=== PATIENT | male | born 1935 | race Caucasian/White ===

== ENCOUNTER 2021-09-15 07:49 | Outpatient (CLI) | payer MEDICARE, SELFPAY ==
--- NOTE | ~2021-09-15 | NM_ITS ---
EXAMINATION: NM bone scan whole body DATE: 09/15/2021 11:11 INDICATION: Prostate cancer TECHNIQUE: 25.8 mCi Tc-99m HDP was administered intravenously. Delayed whole-body scintigrams were o btained. COMPARISON: There are no relevant imaging studies at our institution. FINDINGS: Likely degenerative joint centered uptake at the medial compartment of the left knee, at the right wr ist, bilateral acromioclavicular joints, left sternoclavicular joint and at a few of the interphalang eal joints of the hands. Band of increased uptake extending across the upper lumbar spine. Also incre ased uptake at the left side of the mandible. A few more atypical small foci of mild increased uptake including at the left side of the inferior sternum, at a few bilateral ribs and at the vertex of the skull. IMPRESSION: 1. A few atypical small foci of mild increased uptake at a few of the ribs, at the sternum and vertex of the skull which raises some suspicion for metastatic disease. Could consider further evaluation w ith chest CT for correlation. 2. Increased uptake at the left mandible with differential including dental disease or metastatic dis ease. 3. Band of increased uptake extending across the upper lumbar spine which configuration favors either degenerative disc disease or compression fracture over metastatic disease. Reviewed, dictated and finalized at location B. IMPRESSION: 1. A few atypical small foci of mild increased uptake at a few of the ribs, at the sternum and vertex of the skull which raises some suspicion for metastatic disease. Could consider further evaluation with chest CT for correlation. 2. Increased uptake at the left mandible with differential including dental dis ease or metastatic disease. 3. Band of increased uptake extending across the upper lumbar spine which confi guration favors either degenerative disc disease or compression fracture over m etastatic disease.
== END 2021-09-15 07:50 | disposition home or self-care (01) ==
PROVIDERS: PCP Internal Medicine Geriatric Medicine; Visit Provider Internal Medicine Hematology & Oncology
DX: C61 Malignant neoplasm of prostate (principal)
CPT/HCPCS: 78306; A9561

== ENCOUNTER 2022-06-01 14:21 | Outpatient (CLI) | payer MEDICARE, SELFPAY ==
[2022-06-01 14:43] LABS: Basophils Percent Auto 0.2 % (0.2-1.2); Eosinophils Absolute Auto 0.5 K/mm3 (0-0.3); Eosinophils Percent Auto 5.5 % (0-4.4); Hematocrit 42.2 % (42.0-52.0); Hemoglobin 13.6 g/dL (14.0-18.0); Immature Granulocyte Absolute 0.03 K/mm3 (0.00-0.031); Immature Granulocyte Percent A 0.3 % (0-0.5); Lymphocytes Absolute Auto 1.34 K/mm3 (0.9-3.2); Lymphocytes Percent Auto 15.6 % (18.3-44.2); Mean Corpuscular HGB Conc 32.2 g/dl (32-36); Mean Corpuscular Hemoglobin 31.8 pg (26-34); Mean Corpuscular Volume 98.6 fl (80-100); Mean Platelet Volume 9.1 fl (7.4-10.4); Monocytes Absolute Auto 0.9 K/mm3 (0.1-0.6); Monocytes Percent Auto 10.5 % (2.6-8.5); Neutrophils Absolute Auto 5.8 K/mm3 (1.3-6.7); Neutrophils Percent Auto 67.9 % (45.5-73.1); Platelet Count Result 207 k/mm3 (150-375); Red Blood Count 4.28 M/mm3 (4.6-6.20); Red Cell Distribution Width 13.1 % (11.5-14.5); White Blood Count 8.6 K/mm3 (4.5-10.0)
[2022-06-01 16:38] LABS: Iron 53 ug/dL (49-181)
[2022-06-01 16:39] LABS: Anion Gap 8 mmol/L (8-16); Blood Urea Nitrogen 18 mg/dL (9-20); Calcium 9.7 mg/dL (8.4-10.2); Carbon Dioxide 29 mmol/L (22-30); Chloride 105 mmol/L (98-107); Estimated Glomerular Filt Rate 48; Glucose 96 mg/dL (65-110); Potassium 4.5 mmol/L (3.4-5.0); Sodium 142 mmol/L (137-145)
[2022-06-01 16:48] LABS: Percent Iron Saturation 14 % (20-50)
[2022-06-01 17:10] LABS: Prostate Specific Antigen < 0.1 ng/mL (< OR = 4.0)
[2022-06-01 17:45] LABS: Folic Acid 12.8 ng/mL (2.76->20)
== END 2022-06-01 14:22 | disposition home or self-care (01) ==
PROVIDERS: PCP Internal Medicine Geriatric Medicine; Visit Provider Internal Medicine Hematology & Oncology
DX: D64.9 Anemia, unspecified (principal); C61 Malignant neoplasm of prostate
CPT/HCPCS: 36415; 80048; 82607; 82728; 82746; 83540; 83550; 84153; 85025

== ENCOUNTER 2023-06-01 08:09 | Outpatient (CLI) | payer MEDICARE, SELFPAY ==
[2023-06-01 08:52] LABS: Basophils Percent Auto 0.3 % (0.2-1.2); Eosinophils Absolute Auto 0.5 K/mm3 (0-0.3); Eosinophils Percent Auto 5.9 % (0-4.4); Hematocrit 41.7 % (42.0-52.0); Hemoglobin 13.5 g/dL (14.0-18.0); Immature Granulocyte Absolute 0.05 K/mm3 (0.00-0.031); Immature Granulocyte Percent A 0.6 % (0-0.5); Lymphocytes Absolute Auto 1.77 K/mm3 (0.9-3.2); Lymphocytes Percent Auto 19.5 % (18.3-44.2); Mean Corpuscular HGB Conc 32.4 g/dl (32-36); Mean Corpuscular Hemoglobin 31.2 pg (26-34); Mean Corpuscular Volume 96.3 fl (80-100); Mean Platelet Volume 8.3 fl (7.4-10.4); Monocytes Absolute Auto 0.7 K/mm3 (0.1-0.6); Neutrophils Percent Auto 65.7 % (45.5-73.1); Platelet Count Result 227 k/mm3 (150-375); Red Blood Count 4.33 M/mm3 (4.6-6.20); Red Cell Distribution Width 12.8 % (11.5-14.5); White Blood Count 9.1 K/mm3 (4.5-10.0)
[2023-06-01 15:23] LABS: Iron 64 ug/dL (49-181)
[2023-06-01 15:26] LABS: Anion Gap 6 mmol/L (8-16); Blood Urea Nitrogen 18 mg/dL (9-20); Calcium 9.6 mg/dL (8.4-10.2); Carbon Dioxide 27 mmol/L (22-30); Chloride 105 mmol/L (98-107); Estimated Glomerular Filt Rate > 60; Glucose 106 mg/dL (65-110); Potassium 4.4 mmol/L (3.4-5.0); Sodium 138 mmol/L (137-145)
[2023-06-01 15:41] LABS: Percent Iron Saturation 16 % (20-50)
[2023-06-01 16:06] LABS: Prostate Specific Antigen < 0.1 ng/mL (< OR = 4.0)
[2023-06-01 16:41] LABS: Folic Acid 15.4 ng/mL (2.76->20)
== END 2023-06-01 08:10 | disposition home or self-care (01) ==
PROVIDERS: PCP Internal Medicine Geriatric Medicine; Visit Provider Internal Medicine Hematology & Oncology
DX: D64.9 Anemia, unspecified (principal); C61 Malignant neoplasm of prostate
CPT/HCPCS: 36415; 80048; 82607; 82728; 82746; 83540; 83550; 84153; 85025

== ENCOUNTER 2023-12-04 08:00 | Outpatient (CLI) | payer MEDICARE, SELFPAY ==
[2023-12-04 08:27] LABS: Basophils Percent Auto 0.2 % (0.2-1.2); Eosinophils Absolute Auto 0.4 K/mm3 (0-0.3); Hematocrit 41.2 % (42.0-52.0); Immature Granulocyte Absolute 0.07 K/mm3 (0.00-0.031); Immature Granulocyte Percent A 0.7 % (0-0.5); Lymphocytes Absolute Auto 1.38 K/mm3 (0.9-3.2); Lymphocytes Percent Auto 13.5 % (18.3-44.2); Mean Corpuscular HGB Conc 31.6 g/dl (32-36); Mean Corpuscular Hemoglobin 30.9 pg (26-34); Mean Corpuscular Volume 97.9 fl (80-100); Mean Platelet Volume 8.5 fl (7.4-10.4); Monocytes Absolute Auto 0.7 K/mm3 (0.1-0.6); Monocytes Percent Auto 6.9 % (2.6-8.5); Neutrophils Absolute Auto 7.7 K/mm3 (1.3-6.7); Neutrophils Percent Auto 74.7 % (45.5-73.1); Platelet Count Result 253 k/mm3 (150-375); Red Blood Count 4.21 M/mm3 (4.6-6.20); Red Cell Distribution Width 13.2 % (11.5-14.5); White Blood Count 10.3 K/mm3 (4.5-10.0)
[2023-12-04 09:29] LABS: Iron 73 ug/dL (49-181)
[2023-12-04 09:31] LABS: Anion Gap 9 mmol/L (4-12); Blood Urea Nitrogen 19 mg/dL (9-20); Calcium 9.2 mg/dL (8.4-10.2); Carbon Dioxide 29 mmol/L (22-30); Chloride 99 mmol/L (98-107); Estimated Glomerular Filt Rate > 60; Glucose 97 mg/dL (65-110); Potassium 4.1 mmol/L (3.4-5.0); Sodium 137 mmol/L (137-145)
[2023-12-04 09:39] LABS: Percent Iron Saturation 18 % (20-50)
[2023-12-04 10:01] LABS: Prostate Specific Antigen < 0.1 ng/mL (< OR = 4.0)
[2023-12-04 10:36] LABS: Folic Acid 11.3 ng/mL (2.76->20)
== END 2023-12-04 08:01 | disposition home or self-care (01) ==
LOC: ANHLAB 08:07
PROVIDERS: PCP Internal Medicine Geriatric Medicine; Visit Provider Internal Medicine Hematology & Oncology
DX: D64.9 Anemia, unspecified (principal); C61 Malignant neoplasm of prostate
CPT/HCPCS: 36415; 80048; 82607; 82728; 82746; 83540; 83550; 84153; 85025

== ENCOUNTER 2024-06-02 08:12 | Outpatient (CLI) | payer MEDICARE, SELFPAY ==
--- OUTSIDE RECORDS SUMMARY | 2024-06-02 08:25 | XMS_ITS ---
Author Organization [facility] Address [address] [place] [address] Care Team Providers Care Spool Maker Name Role Phone Agapito Suh MD Unavailable Genesis BEST MD, Js Marcos Unavailable Cain Avalos MD Unavailable [phone] Luigi Gilbert MD Primary Care Provider + Active Problems Problem Noted Date Diagnosed Date Angina pectoris 02/24/2022 08/30/2022 Renal artery stenosis 02/24/2022 08/30/2022 Overview (08/30/2022): 10% of left right nml Chronic kidney disease, stage 2 (mild) 2 08/30/2022 Syncope, unspecified syncope type 02/16/2022 Diarrhea, unspecified 04/21/2021 08/30/2022 Difficulty in walking, not elsewhere classified 04/16/2021 08/30/2022 Occlusion and stenosis of bilateral carotid michael kermit 04/16/2021 08/30/2022 Pneumonia due to SARS-associated coronavirus 08/30/2022 Post covid-19 condition, unspecified 04/16/2021 08/30/2022 Chronic diastolic (congestive) heart failure Alzheimer's dementia with behavioral disturbance 04/12/2021 Acute kidney injury 04/12/2021 Acute respiratory failure with hypoxia 2 Nephrolithiasis 04/12/2021 Toxic metabolic encephalopathy 04/12/2021 COVID-19 04/11/2021 Contact with and (suspected) exposure to other communicable diseases 11/28/2019 08/30/2022 Influenza due to unidentifie d influenza virus with other respiratory manifestations 11/28/2019 08/30/2022 CAD (coronary artery disease) 11/12/2019 Overview (11/12/2019): Added automatically from request for surgery [id number] Cardiovascular symptoms 11/10/2019 08/31/19 23 Overview (08/30/2022): old laucan cva, 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 Cerebral aneurysm 11/10/2019 08/30/2022 Encounter for health-related screening 0 08/30/2022 Essential (primary) hypertension 11/10/2019 08/30/2022 Gout 11/10/2019 08/30/2022 Hiatal hernia 11/10/2019 08/30/2022 Hyperlipidemia 11/10/2019 08/30/2022 Hypothyroidism 11/10/2019 08/30/2022 Lacunar infarction 11/10/2019 08/30/2022 Memory impairment 11/10/2019 08/30/2022 Overview (08/30/2022): b12 WAS LOW, RPRP NEG Testicular hypofunction 11/10/2019 08/31/19 23 Vitamin B12 deficiency anemia, unspecified 11/0908/30/2022 Overview (08/30/2022): foalte ok foalte ok, cannot take rita pills foalte ok, cannot take rita pills Valvular heart disease 11/10/2019 3 Sensorineural hearing loss ( SNHL) of left ear with restricted hearing of right ear 08/06/2019 Assessment & Plan (12/11/2022 9:36 AM CDT): Continue Hearing aids Follow up with ear fullness Avoid ear cleaning techniques Assessment & Plan (08/06/2019 4:25 PM CDT): Hearing test Consider Hearing aids Hypertensive urgency 07/24/2019 Bilateral carotid artery stenosis 06/09/2019 Trigger middle finger of right hand 08/26/2018 Overview (08/26/2018): Added automatically from request for surgery [id number] Trigger middle finger of left hand 08/26/2018 Overview (08/26/2018): Added automatically from request for surgery [id number] Trigger index finger of right hand 08/26/2018 Overview (08/26/2018): Added automatically from request for surgery [id number] Trigger index finger of left hand 08/26/2018 Overview (08/26/2018): Added automatically from request for surgery [id number] S/P radiotherapy 05/23/2017 Prostate cancer 02/27/2017 Cancer Staging:Clinical stage from 02/27/2017: T3, N0, M0, PSA: Less than 10, Jazmine 8-10 - Signed by Ana Lilia Dinh MD on 12/04/2019 Age-related physical debility Diaphoresis Current Treatment and Therapy Plans No current plan information found. Past Treatment and Therapy Plans No past plan information found. Radiation Treatments * Course C1 PROSTATE 2018 05/24/2017 - 07/24/2017 Treatment Period Energy Fraction Dose Fractions Total Dose Plans Planned PRST BST 06/27/2017 - 07/24/2017 180 19 / 3,420 PRST_LNS 05/24/2017 - 06/26/2017 180 25 / 4,500 Reference Points Delivered [id number] DPV 06/27/2017 - 07/24/2017 3,420 PELVIS DPV 05/24/2017 - 06/26/2017 4,500 Lifetime Dose Tracking * Chemical Lifetime Dose Automatic Entry Manual Entr y Air kerma at the reference point (Ka,r) 1,622 mGy 0 mGy 1,622 mGy
--- OUTSIDE RECORDS SUMMARY | 2024-06-02 08:25 | XMS_ITS | Clinical Summary ---
Author Organization [facility] Address [address] [place] [address] Care Team Providers Care Occupational Health Rn Name Role Phone Agapito Suh MD Unavailable [phone] Genesis BEST MD, Carlos M. Unavailable Cain Avalos MD Unavailable [phone] Luigi Gilbert MD Primary Care Provider + Allergies Active Allergy Reactions Criticality Noted Date Comments Morphine Other (See comments) Low 04/29/2018 Dropped blood pressure Medications cyanocobalamin, vitamin B-12, 1,000 mcg/mL kit Inject 1,000 mcg as directed Injection every month. Active allopurinoL (ZYLOPRIM) 300 mg tabletIndication s:prevention of acute gout attack Take 1 tablet (300 mg total) by mouth daily Active levothyroxine (SYNTHROID) 50 mcg tabletIndication s:hypothyroidism Take 1 tablet (50 mcg total) by mouth business process architect before breakfast Active mirtazapine (REMERON) 7.5 mg tabletIndication s:anxiety Take 1 tablet (7.5 mg total) by mouth nightly Active metoprolol tartrate (LOPRESSOR) 25 mg immediate release tabletIndication s:hypertension Take 1 tablet (25 mg total) by mouth 2 (two) times a day Active QUEtiapine (SEROquel) 25 mg tabletIndication s:Schizophrenia Take 0.5 tablets (12.5 mg total) by mouth 2 (two) times a day May take additional 1/2 tablet as needed for anxiety Active acetaminophen (TYLENOL) 500 mg tabletIndication s:Pain Take 2 tablets (1,000 mg total) by mouth every 6 (six) hours as needed for pain Active ezetimibe (ZETIA) 10 mg tablet Take 1 tablet (10 mg total) by mouth nightly [address] (PROTONIX) 40 mg EC tabletIndication s:GI Bleed Take 1 tablet (40 mg total) by mouth 2 (two) times a day 60 tablet 11 2 Active methylPREDNISolo ne (Medrol, Binh,) 4 mg DosepackIndicati ons:Acute gout of right hand, unspecified cause follow package directions 1 packet 3 Active rosuvastatin (CRESTOR) 40 mg tablet Take 1 tablet (40 mg total) by mouth nightly 3 Active donepeziL (ARICEPT) 10 mg tablet Take 1 tablet (10 mg total) by mouth daily 3 Active azithromycin (Zithromax Z-Binh) 250 mg tablet Take 1 tablet (250 mg total) by mouth daily Take first 2 tablets together, then 1 every day until finished. 6 tablet 4 Active benzonatate (TESSALON) 100 mg capsuleIndicatio ns:Cough Take 1 capsule (100 mg total) by mouth every 8 (eight) hours 21 capsule 4 Active Active Problems Problem Noted Date Diagnosed Date [...] (11/12/2019): Added automatically from request for surgery [id number] Cardiovascular symptoms 11/10/2019 08/31/19 23 Overview (08/30/2022): [...] (08/26/2018): Added automatically from request for surgery [id number] Trigger middle finger of left hand 08/26/2018 Overview (08/26/2018): Added automatically from request for surgery [id number] Trigger index finger of right hand 08/26/2018 Overview (08/26/2018): Added automatically from request for surgery [id number] Trigger index finger of left hand 08/26/2018 Overview (08/26/2018): Added automatically from request for surgery [id number] S/P radiotherapy 05/23/2017 Prostate cancer 02/27/2017 Cancer Staging:Clinical stage from 02/27/2017: T3, N0, M0, PSA: Less than 10, Jazmine 8-10 - Signed by Ana Lilia Dinh MD on 12/04/2019 Age-related physical debility Diaphoresis Immunizations Immunization Administration Dates Next Due Influenza, Trivalent, High D ose, Split, Preservative Free, Intramuscular 01/10/2019,01/14/2018,01/25/2017,01/24,02/14/2015 Influenza, Trivalent, IM (MDV) 01/29/2017,2013,01/06/2013 Pneumococcal Conjugate PCV 13 02/14/2015 Surgical History Surgery Date Site/Laterality Comments BACK SURGERY x2 Laminectomy and bone spur removal EXTRACORPOREAL SHOCK WAVE LITHOTRIPSY TRIGGER FINGER RELEASE 09/02/2018 Bilateral Medical History Medical History Date Comments Hypertension High cholesterol Gout Hypothyroidism Vitamin B12 deficiency Vitamin D deficiency Prostate cancer (HCC) S/P radiat ion finished 07/24/17 Kidney stones Hyperlipidemia H&P Nephrolithiasis H&P Coronary artery disease Stroke (HCC) 02/2020 TIA (transient ischemic attack) 05/2019 Alzheimer's dementia (HCC) Anemia Arthritis Family History Medical History Relation Name Comments COPD Father Hyperlipidemia Father Hypertension Father Stroke Father Heart attack Mother Heart disease Mother Hyperlipidemia Mother Hypertension Mother Relation Name Status Comments Father Mother Social History Tobacco Use Types Packs/Day Years Used Date Smoking Tobacco: Never Smokeless Tobacco: Never Alcohol Use Standard Drinks/Week Comments Yes 0 (1 standard drink = 0.6 oz pur e alcohol) rare glass of wine AUDIT-C Answer Date Recorded Q1: How often do you have a drink containing alc ohol? Monthly or less 02/16/2022 Q2: How many drinks containi ng alcohol do you have on a typical day when you are drinking? 1 or 2 02/16/2022 Q3: How often do you have si x or more drinks on one occasion? Less than monthly 02/16/2022 PHQ-2 Answer Date Recorded PHQ-2 Score 0 02/27/2019 Personal Safety Answer Date Recorded Have you ever been in or are you currently in a harmful physical or emotional relationship or is someone making you feel afraid or unsafe? 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 Gender Identity Not on file Sexual Orientation Not on file Obstetrics History Last Filed Vital Signs Vital Sign Reading Time Taken Comments Blood Pressure 150/66 11/21/2023 8:30 PM CDT Pulse 85 11/21/2023 8:30 PM CDT Temperature 36.7 C (98.1 F) 11/21/2023 5:19 PM CDT Respiratory Rate 18 11/21/2023 8:30 PM CDT Oxygen Saturation 95% 11/21/2023 8:30 PM CDT Inhaled Oxygen Concentration - - Weight 63.5 kg (140 lb) 11/21/2023 5:19 PM CDT Height 162.6 cm (5' 4 ) 11/21/2023 5:19 PM CDT Body Mass Index 24.03 11/21/2023 5:19 PM CDT Plan of Treatment Health Maintenance Due Date Last Done Comments DTaP/Tdap/Td Vaccine (1 - Tdap) 1946 Hepatitis B Screening 09/29/1953 Zoster Vaccine (1 of 2) 09/29/1987 Well Visit 65+ 2002 Pneumococcal vaccine 65+ (2 of 2 - PPSV23) 04/11/2015 02/14/2015 Depression Screening 02/26/2020 02/25/2019, 02/26/20 19 Fall Risk Assessment 02/17/2023 02/17/2022, 06/02/19 21 Influenza Vaccine (#1) 2023 9, 01/14/2018, 01/29/2017, Additional history exists Medical Devices Implanted Type Area Unit Manager Rn Device Identifier Shelf Expiration Date Model / Serial / Lot [employer] [id number] System Coronary Stent Xience Dania Everolimus L8 Mm Od2.5 Mm Rapid Exchange - [id number] Implanted:Qty: 1 on 11/25/2019 by Cain Avalos MD at [facility] Vascular 05/24/2020 [id number] / / [id number] [employer] [id number] System Coronary Stent Xience Dania Everolimus L23 Mm Od3 Mm Rapid Exchange - [id number] Implanted:Qty: 1 on 11/25/2019 by Cain Avalos MD at [facility] V[facility] 05/13/2020 [id number] / / [id number] [employer] [id number] Synergy 2.25mm 12mm 144cm Radiopaque 1 Access Port Inflation - [id number] Implanted:Qty: 1 on 11/25/2019 by Cain Avalos MD at [facility] [employer] 03/31/2021 [id number] / / [id number] [employer] [id number] Device Closure Angio-Seal Vip Bondek-Plus Polyglyd L70 Cm Od6 Fr Odsec.035 In Vascular - [id number] Implanted:Qty: 1 on 11/25/2019 by Cain Avalos MD at [facility] [employer] 07/23/2020 [id number] / / [id number] Insurance MEDICARE COMMERCIAL GENERIC [id number] [place] [address] INSURANCE MEDICARE [facility] MEDICARE [employer] [facility] MEDICARE [facility] Advance Directives For more information, please contact: [phone] * Full Code (Latest Code Status on File) Date Activated Date Inactivated Comments 06/17/2021 3:48 PM 06/21/2021 8:17 PM * LIMITED - No CPR Date Activated Date Inactivated Comments 04/12/2021 10:12 AM 04/17/2021 1:35 AM Question Answer Comments Provide aggressive medical m anagement before a full cardiopulmonary arrest occurs. Use antibiotics, IV Fluids, and medical treatment unless specifically selected below: No intubationNo cardioversion * Comfort Care Only - DO NOT Resuscitate Date Activated Date Inactivated Comments 04/11/2021 10:12 PM 04/12/2021 10:12 AM * Full Code Date Activated Date Inactivated Comments 11/25/2019 12:05 PM 11/26/2019 5:47 PM * Full Code Date Activated Date Inactivated Comments 07/23/2019 5:25 PM 07/24/2019 8:25 PM Healthcare Agents on File Name Relationship Healthcare Agent Relationshi p Communication Ayanna Coreas Daughter Health Care Agent Care Teams Occupational Health Rn Relationship Specialty [place] [address] [address] [facility] [address] [place] [address] PCP - General Internal Medicine 04/25/21 Agapito Suh MD Consulting Physician Radiation Oncology 04/26/18 [place] [address] [address] [facility] [address] [place] [address] Consulting Physician Neurology 03/13/19 Cani Avalos MD [address] [place] [address] Consulting Physician Cardiology 11/26/19
--- OUTSIDE RECORDS SUMMARY | 2024-06-02 08:25 | XMS_ITS | Encounter Summary ---
Author Organization [facility] Address [address] [place] [address] Care Team Providers Care Shop Service Technician Name Role Phone Luigi Gilbert MD Primary Care Provider + Agapito Suh MD Unavailable [phone] Genesis BEST MD, Carlos M. Unavailable [phone] Cain Avalos MD Unavailable [phone] Luigi Gilbert MD Primary Care Provider + Encounter Details Date Type Department Care Team (Late st Contact Info) Description 12/04/2019 Orders Only [facility] Radiation Oncology [address] [place] [address] Ana Lilia Dihn MD [address] [facility] [address] [place] [address] Prostate cancer (HCC) (Primary Dx) Social History Tobacco Use Types Packs/Day Years Used Date Smoking Tobacco: Never Smokeless Tobacco: Never Alcohol Use Standard Drinks/Week Comments Yes 0 (1 standard drink = 0.6 oz pur e alcohol) rare glass of wine PHQ-2 Answer Date Recorded PHQ-2 Score 0 02/27/2019 Sex and Gender Information Value Date Recorded Sex Assigned at Not on file Legal Sex Male 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 Gender Identity Not on file Sexual Orientation Not on file documented as of this encounter Plan of Treatment Scheduled Orders Name Type Priority Associated Diagnoses Orde r Schedule PSA diagnostic Lab Routine Prostate cancer (HCC) Expected: 06/02/2020, Expires: 12/03/2020 documented as of this encounter Visit Diagnoses Diagnosis Prostate cancer (HCC)- Primary Malignant neoplasm of prostate documented in this encounter Additional Health Concerns Infection Onset Date Last Indicated Resolved Time COVID: Suspected 04/02/2021 04/02/2021 04/02/2021 11:28 AM MEDICAL INSURANCE CODING SPECIALIST COVID19 Comment:Patient has documented SpO2 < 94% which requires supplemental oxygen. Based on a S&S onset date of 04/02/21 plus the need for supplemental oxygen this patient is first eligible for COVID: Recovered evaluation on 04/23/21. CAR Camara 04/02/2021 04/02/202103/28 3:05 AM MEDICAL INSURANCE CODING SPECIALIST COVID: Recovered Comment:Added based on recent COVID infection. 04/25/2021 04/25/2021 08/23/2021 3:05 AM C DT Influenza, adult 06/16/2021 06/16/2021 06/23/2021 3:05 AM CDT COVID: Suspected 02/16/2022 02/16/2022 02/16/2022 5:45 PM MEDICAL INSURANCE CODING SPECIALIST COVID: Suspected 11/21/2023 11/21/2023 11/21/2023 6:22 PM CDT documented as of this encounter Care Teams Shop Service Technician Relationship Specialty [place] [address] [address] [facility] [address] PCP - General 12/15/16 04/24/21 [place] [address] [address] [facility] [address] PCP - General Internal Medicine 04/25/21 [place] [address] [address] [facility] [address] Consulting Physician Radiation Oncology 04/26/18 [place] [address] [address] [address] Consulting Physician Neurology 03/13/19 Cain Avalos MD [address] [place] [address] Consulting Physician Cardiology 11/26/19 documented as of this encounter
--- OUTSIDE RECORDS SUMMARY | 2024-06-02 08:25 | XMS_ITS | Clinical Summary ---
Author Organization [facility]gever[facility] Address [address] [place] [address] Care Team Providers Care Men'S Swim Coach Name Role Phone Luigi Gonzalez MD Primary Care Provider [phone] Allergies Active Allergy Reactions Criticality Noted Date Comments Morphine Other (See Comments) High 04/29/2018 Dropped blood pressure Medications acetaminophen (TYLENOL) 500 mg tablet Take 1,000 mg by mouth. Active allopurinoL (ZYLOPRIM) 300 mg tablet Take 300 mg by mouth daily. 2 Active atorvastatin (LIPITOR) 40 mg tablet Take 40 mg by mouth daily at bedtime. 2 Active donepeziL (ARICEPT ODT) 5 mg Tablet, Rapid Dissolve Take 10 mg by mouth daily at bedtime. 0 Active ezetimibe (ZETIA) 10 mg tablet TAKE 1 TABLET BY MOUTH ONCE DAILY WITH ATORVASTATIN 2 Active levothyroxine 50 mcg tablet Take 50 mcg by mouth. 0 Active metoprolol tartrate (LOPRESSOR) 25 mg tablet Take 25 mg by mouth 2 times daily. 2 Active mirtazapine (REMERON) 7.5 mg tablet TAKE 1 TABLET BY MOUTH ONCE DAILY AT NIGHT 2 Active pantoprazole (PROTONIX) 40 mg Tablet, Delayed Release (E.C.) Take 40 mg by mouth 2 times daily. 2 Active QUEtiapine (SEROquel) 25 mg tablet Take 12.5 mg by mouth 2 times daily. Active cyanocobalamin, vitamin B-12, (VITAMIN B-12 INJECTION) by Injection route. Active Active Problems Problem Noted Date Diagnosed Date Chronic anemia 09/12/2021 Prostate cancer 09/12/2021 Encounters Date Type Department Care Team Description 05/28/2024 External Device Data STL ABSTRACTION Provider, Abstract 05/14/2024 External Device Data ST[facility] ABSTRACTION Provider, Abstract 05/13/2024 External Device Data ST[facility] ABSTRACTION Provider, Abstract 04/16/2024 External Device Data ST[facility] ABSTRACTION Provider, Abstract 04/15/2024 External Device Data ST[facility] ABSTRACTION Provider, Abstract from Last 3 Months Family History Medical History Relation Name Comments Cancer Brother Heart Disease Mother Heart Disease Sister Relation Name Status Comments Brother Daughter 1 Alive Daughter 2 Alive Father Mother Sister Alive Son Alive Social History Tobacco Use Types Packs/Day Years Used Date Smoking Tobacco: Never Tobacco Cessation:Counseling Given: Not Answered Alcohol Use Standard Drinks/Week Comments Never 0 (1 standard drink = 0.6 oz pur e alcohol) Sex and Gender Information Value Date Recorded Sex Assigned at Not on file Legal Sex Male 2:38 PM CDT Gender Identity Not on file Sexual Orientation Not on file Last Filed Vital Signs Vital Sign Reading Time Taken Comments Blood Pressure 128/78 12/13/2023 11:20 AM CDT Pulse 70 12/13/2023 11:20 AM CDT Temperature 36.5 C (97.7 F) 12/13/2023 11:20 AM CDT Respiratory Rate 18 12/13/2023 11:20 AM CDT Oxygen Saturation 94% 12/13/2023 11:20 AM CDT Inhaled Oxygen Concentration - - Weight 63.5 kg (140 lb) 12/13/2023 11:20 AM CDT Height 162.6 cm (5' 4 ) 12/02/2021 2:13 PM CDT Body Mass Index 24.03 12/02/2021 2:13 PM CDT Plan of Treatment Upcoming Encounters Date Type Department Care Team (Late st Contact Info) Description 06/11/2024 10:00 AM CDT Office Visit [facility] Oncology and Hematology - [address] [address] [facility] [facility] [address] [place] [address] Attila Bass MD [address] [facility] [address] [place] [address] Health Maintenance Due Date Last Done Comments DTAP/TDAP/TD VACCINES (1 - Tdap) 1954 Traditional Medicare (ACO) A nnual Wellness Visit 1954 ZOSTER VACCINE (1 of 2) 09/29/1987 RSV VACCINE (60+ or ) (1 - 1-dose 75+ series) 2012 PNEUMOCOCCAL VACCINE 50+ YEA RS (2 of 2 - PPSV23) 04/11/2015 02/14/2015 INFLUENZA VACCINE (#1) 2023 9, 01/14/2018, 01/29/2017, Additional history exists Insurance MEDICARE SUPPLEMENT MEDICARE PART A AND B [facility] SUPP Care Teams Men'S Swim Coach Relationship Specialty Start Date End Date Luigi Gonzalez MD PCP - General Internal Medicine 09/12/21
--- OUTSIDE RECORDS SUMMARY | 2024-06-02 08:25 | XMS_ITS | Encounter Summary ---
Author Organization [facility] Address [address] [place] [address] Phone Care Team Providers Care Manager Technical Training Name Role Phone Luigi Gilbert MD Primary Care Provider + Agapito Suh MD Unavailable [phone] Genesis BEST MD, Js Marcos Unavailable [phone] Cain Avalos MD Unavailable [phone] Luigi Gilbert MD Primary Care Provider + Encounter Details Date Type Department Care Team (Late st Contact Info) Description 07/24/2017 Orders Only [facility] ProviderHerlinda MD [address] [place] [address] Social History Tobacco Use Types Packs/Day Years Used Date Smoking Tobacco: Never Smokeless Tobacco: Never Sex and Gender Information Value Date Recorded Sex Assigned at Not on file 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 us Historical Provider MD CROWLEY XR PROCEDURES Final R esult documented in this encounter Visit Diagnoses Not on filedocumented in this encounter Additional Health Concerns Infection Onset Date Last Indicated Resolved Time MRSA Comment:R leg 05/02/11; #2 neg nare 03/04/19 05/03/2011 05/03/2011 03/05/2019 8:[address] COVID: Suspected 04/02/2021 04/02/2021 04/02/2021 11:28 AM COURTESY VAN DRIVER COVID19 Comment:Patient has documented SpO2 < 94% which requires supplemental oxygen. Based on a S&S onset date of 04/02/21 plus the need for supplemental oxygen this patient is first eligible for COVID: Recovered evaluation on 04/23/21. CAR Camara 04/02/2021 04/02/202103/28 3:05 AM COURTESY VAN DRIVER COVID: Recovered Comment:Added based on recent COVID infection. 04/25/2021 04/25/2021 08/23/2021 3:05 AM C DT Influenza, adult 06/16/2021 06/16/2021 06/23/2021 3:05 AM CDT COVID: Suspected 02/16/2022 02/16/2022 02/16/2022 5:45 PM COURTESY VAN DRIVER COVID: Suspected 11/21/2023 11/21/2023 11/21/2023 6:22 PM CDT documented as of this encounter Care Teams Manager Technical Training Relationship Specialty [place] [address] [facility] [place] [address] PCP - General 12/15/16 04/24/21 [place] [address] [address] [facility] [place] [address] PCP - General Internal Medicine 04/25/21 [place] [address] [address] [facility] [place] [address] Consulting Physician Radiation Oncology 04/26/18 [place] [address] [address] [address] Consulting Physician Neurology 03/13/19 Cain Avalos MD [address] [place] [address] Consulting Physician Cardiology 11/26/19 documented as of this encounter
--- OUTSIDE RECORDS SUMMARY | 2024-06-02 08:25 | XMS_ITS | Referral Summary ---
Author Organization [facility] Address [address] [place] [address] Care Team Providers Care Head Of Research & Insights Name Role Phone Agapito Suh MD Unavailable [phone] Genesis BEST MD, Carlos M. Unavailable Cain Avalos MD Unavailable [phone] Luigi Gilbert MD Primary Care Provider [...] 1 tablet (50 mcg total) by mouth group work program director before breakfast Active mirtazapine (REMERON) 7.5 mg [...] (11/12/2019): Added automatically from request for surgery [id number] Cardiovascular symptoms 11/10/2019 08/31/19 23 Overview (08/30/2022): [...] (08/26/2018): Added automatically from request for surgery [id number] Trigger middle finger of left hand 08/26/2018 Overview (08/26/2018): Added automatically from request for surgery [id number] Trigger index finger of right hand 08/26/2018 Overview (08/26/2018): Added automatically from request for surgery [id number] Trigger index finger of left hand 08/26/2018 Overview (08/26/2018): Added automatically from request for surgery [id number] S/P radiotherapy 05/23/2017 Prostate cancer 02/27/2017 Cancer Staging:Clinical stage from 02/27/2017: T3, N0, M0, PSA: Less than 10, Jazmine 8-10 - Signed by Ana Lilia Dinh MD on 12/04/2019 Age-related physical debility Diaphoresis Immunizations Immunization Administration Dates Next Due Influenza, Trivalent, High D ose, Split, Preservative Free, Intramuscular 01/10/2019,01/14/2018,01/25/2017,01/24,02/14/2015 Influenza, Trivalent, IM (MDV) 01/29/2017,2013,01/06/2013 Pneumococcal Conjugate PCV 13 02/14/2015 Social History Tobacco Use Types Packs/Day Years [...] on file 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 Gender Identity Not on file Sexual Orientation [...] 11/21/2023 5:19 PM CDT Plan of Treatment Not on file Medical Devices Implanted Type Area Senior Resident Care Director Device Identifier Shelf Expiration Date Model / Serial / Lot [employer] [id number] System Coronary Stent Xience Dania Everolimus L8 Mm Od2.5 Mm Rapid Exchange - [id number] Implanted:Qty: 1 on 11/25/2019 by Cain Avalos MD at [facility] [employer] 05/24/2020 [id number] 2041 [employer] [id number] System Coronary Stent Xience Dania Everolimus L23 Mm Od3 Mm Rapid Exchange - [id number] Implanted:Qty: 1 on 11/25/2019 by Cain Avalos MD at [facility] V[employer] 05/13/2020 [id number] / [id number] [employer] [id number] Synergy 2.25mm 12mm 144cm Radiopaque 1 Access Port Inflation - [id number] Implanted:Qty: 1 on 11/25/2019 by Cain Avalos MD at [facility] [employer] [facility] 03/31/2021 [id number] / / [id number] [facility] [id number] Device Closure Angio-Seal Vip Bondek-Plus Polyglyd L70 Cm Od6 Fr Odsec.035 In Vascular - [id number] Implanted:Qty: 1 on 11/25/2019 by Cain Avalos MD at [facility] 07/23/2020 [id number] / / [id number] Insurance MEDICARE [facility] Address: [id number] [place] [address] COMMERCIAL [facility] INSURANCE MEDICARE [facility] MEDICARE [facility] MEDICARE [facility] Advance Directives For more information, please contact: [phone] * Full Code (Latest Code Status on [...] Coreas Daughter Health Care Agent Care Teams Head Of Research & Insights Relationship Specialty [place] [address] [address] [facility] [address] [place] [address] PCP - General Internal Medicine 04/25/21 Agapito Suh MD Consulting Physician Radiation Oncology 04/26/18 [place] [address] [address] [facility] [address] [place] [address] Consulting Physician Neurology 03/13/19 Cain Avalos MD [address] [place] [address] Consulting Physician Cardiology 11/26/19
--- OUTSIDE RECORDS SUMMARY | 2024-06-02 08:25 | XMS_ITS ---
Author Organization [facility] Care Team Providers Care Manager Paper Name Role Phone Jose Ramírez Unavailable Unavailable Allergies and adverse reactions Code CodeSystem Substance Reaction Severity StartDate Concern Status 7052 RXNORM Morphine Unknown 04/16/2021 active Care Team Name Role Address Phone Organization Dates Jose Ramírez PCP [address], [place], [facility] [place], [place] States (Office): : : [facility] 04/17/2021 - 04/22/2021 Immunizations Immunization Status Vaccine Details Vaccine Code CodeSystem Jesus e Notes Pneumovax (in community/hospita l) completed pneumococcal conjugate vaccine, 13 valent 133 CVX created date: 04/18/2021 consent date: 04/18/2021 administered date: 02/14/2015 Problems Problem # Description Date of onset Resolved Date Code CodeSystem Concern Status 1 DIARRHEA, UNSPECIFIED 04/21/[address] active 2 ACUTE RESPIRATORY FAILURE WITH HYPOXIA 04/16/[address] active 3 ALZHEIMER'S DISEASE, UNSPECIFIED 04/16/[address] active 4 ATHEROSCLEROTIC HEART DISEASE OF [place] CORONARY ARTERY WITHOUT ANGINA PECTORIS 04/16/[address] active 5 CALCULUS OF KIDNEY 04/16/[address] active 6 CHRONIC DIASTOLIC (CONGESTIVE) HEART FAILURE 04/16/[address] active 7 DEMENTIA IN OTHER DISEASES CLASSIFIED ELSEWHERE WITH BEHAVIORAL DISTURBANCE 04/16/[address] active 8 DIFFICULTY IN WALKING, NOT ELSEWHERE CLASSIFIED 04/16/[address] active 9 ESSENTIAL (PRIMARY) HYPERTENSION 04/16/[address] active 10 NEED FOR ASSISTANCE WITH PERSONAL CARE 04/16/[address] active 11 OCCLUSION AND STENOSIS OF BILATERAL CAROTID ARTERIES 04/16/[address] active 12 OTHER TOXIC ENCEPHALOPATHY 04/16/[address] active 13 PERSONAL HISTORY OF TRANSIENT ISCHEMIC ATTACK (TIA), AND CEREBRAL INFARCTION WITHOUT RESIDUAL DEFICITS 04/16/[address] active 14 PNEUMONIA DUE TO SARS-ASSOCIATED CORONAVIRUS 04/16/[address] active 15 POST COVID-19 CONDITION, UNSPECIFIED 04/16/19 U09.9 ICD-10-CM active 16 UNSPECIFIED HEARING LOSS, BILATERAL 04/16/[address] active Reason for Referral No Reasons for Referral Entered Social History Social History Observation Description Start Date End Date Code Code System Current Smoking Status Tobacco smoking consumption unknown 288438026 SNOMED CT Sex Assigned At Male 1935 20449-7 [facility] Vital Signs Code Code System Vitals Name Values and Units Timing Information 8302-2 [facility] Height Value=65.0 Units=Inches 04/23/2021 8310-5 [facility] Body Temperature Value=97.0 Units= F 04/22/2021 51253-2 LOINC O2 % BldC Oximetry Value=98.0 Units= % 04/22/2021 58681-4 LOINC Weight Icywf=751.6 Units=Lbs 30174-8 LOINC Pain Level Value=0.0 04/22/2021 9279-1 [facility] Respiratory Rate Value=18.0 Units=/m in 04/18/2021 8462-4 [facility] Blood Pressure-Diastolic Value=73 Un its=mmHg 04/18/2021 8480-6 [facility] Blood Pressure-Systolic Llkyt=112 Un its=mmHg 04/18/2021 8867-4 [facility] Heart rate Value=77.0 Units=/min
[2024-06-02 08:32] LABS: Basophils Percent Auto 0.3 % (0.2-1.2); Eosinophils Absolute Auto 0.5 K/mm3 (0-0.3); Eosinophils Percent Auto 6.4 % (0-4.4); Hematocrit 39.6 % (42.0-52.0); Hemoglobin 12.4 g/dL (14.0-18.0); Immature Granulocyte Absolute 0.04 K/mm3 (0.00-0.031); Immature Granulocyte Percent A 0.5 % (0-0.5); Lymphocytes Absolute Auto 1.77 K/mm3 (0.9-3.2); Mean Corpuscular HGB Conc 31.3 g/dl (32-36); Mean Corpuscular Hemoglobin 29.9 pg (26-34); Mean Corpuscular Volume 95.4 fl (80-100); Mean Platelet Volume 8.5 fl (7.4-10.4); Monocytes Absolute Auto 0.6 K/mm3 (0.1-0.6); Monocytes Percent Auto 8.1 % (2.6-8.5); Neutrophils Absolute Auto 4.5 K/mm3 (1.3-6.7); Neutrophils Percent Auto 60.7 % (45.5-73.1); Platelet Count Result 224 k/mm3 (150-375); Red Blood Count 4.15 M/mm3 (4.6-6.20); Red Cell Distribution Width 13.5 % (11.5-14.5); White Blood Count 7.4 K/mm3 (4.5-10.0)
[2024-06-02 10:14] LABS: Iron 92 ug/dL (49-181)
[2024-06-02 10:20] LABS: Alanine Aminotransferase 23 U/L (6-50); Albumin Level 4.2 g/dL (3.5-5.1); Alkaline Phosphatase 87 U/L (38-126); Anion Gap 9 mmol/L (4-12); Aspartate Amino Transferase 27 U/L (17-59); Bilirubin,Total 0.5 mg/dL (0.2-1.3); Blood Urea Nitrogen 26 mg/dL (9-20); Calcium 9.5 mg/dL (8.4-10.2); Carbon Dioxide 29 mmol/L (22-30); Chloride 103 mmol/L (98-107); Estimated Glomerular Filt Rate 56; Glucose 97 mg/dL (65-110); Potassium 3.9 mmol/L (3.4-5.0); Sodium 141 mmol/L (137-145)
[2024-06-02 10:24] LABS: Percent Iron Saturation 20 % (20-50)
[2024-06-02 10:49] LABS: Prostate Specific Antigen < 0.1 ng/mL (< OR = 4.0)
[2024-06-02 11:25] LABS: Folic Acid 10.7 ng/mL (2.76->20)
== END 2024-06-02 08:13 | disposition home or self-care (01) ==
LOC: ANHLAB 08:13
PROVIDERS: PCP Internal Medicine Geriatric Medicine; Visit Provider Internal Medicine Hematology & Oncology
DX: D64.9 Anemia, unspecified (principal); C61 Malignant neoplasm of prostate
CPT/HCPCS: 36415; 80053; 82607; 82728; 82746; 83540; 83550; 84153; 85025

== ENCOUNTER 2024-12-05 08:24 | Outpatient (CLI) | payer MEDICARE, SELFPAY ==
--- OUTSIDE RECORDS SUMMARY | 2024-12-05 08:33 | XMS_ITS | Encounter Summary ---
Author Organization [facility] Address [address] [place] [address] Care Team Providers Care Community Dietitian Name Role Phone Luigi Gilbert MD Primary Care Provider + Agapito Suh MD Unavailable [phone] Genesis BEST MD, Carlos M. Unavailable [phone] Cain Avalos MD Unavailable [phone] Luigi Gilbert MD Primary Care Provider + Encounter Details Date Type Department Care Team (Late st Contact Info) Description 12/04/2019 Orders Only [facility] Radiation Oncology [address] [place] [address] Ana Lilia Dinh MD [address] 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 Based on a S&S onset date of 04/02/21 plus the need for supplemental oxygen this patient is first eligible for COVID: Recovered evaluation on 04/23/21. CAR Camara 04/02/2021 04/02/202103/28 3:05 AM FIXED INCOME PORTFOLIO MANAGER COVID: Recovered Comment:Added based on recent COVID infection. 04/25/2021 04/25/2021 08/23/2021 3:05 AM C DT Influenza, adult 06/16/2021 06/16/2021 06/23/2021 3:05 AM CDT COVID: Suspected 02/16/2022 02/16/2022 02/16/2022 5:45 PM FIXED INCOME PORTFOLIO MANAGER COVID: Suspected 11/21/2023 11/21/2023 11/21/2023 6:22 PM CDT documented as of this encounter Care Teams Community Dietitian Relationship Specialty [place] [address] [address] [facility] [address] [place] [address] PCP - General 12/15/16 04/24/21 [place] [address] [address] [facility] [address] [place] [address] PCP - General Internal Medicine 04/25/21 [place] [address] [address] [facility] [address] [place] [address] Consulting Physician Radiation Oncology 04/26/18 [place] [address] [address] [address] Consulting Physician Neurology 03/13/19 [place] [address] [address] [address] Consulting Physician Cardiology 11/26/19 documented as of this encounter
--- OUTSIDE RECORDS SUMMARY | 2024-12-05 08:34 | XMS_ITS | Patient Health Record ---
Author Organization [facility] Address [address] [place] [address] Care Team Providers Care School Admissions Representative Name Role Phone LELA SILVEIRA Unavailable [phone] Reason For Referral No Information Plan Of Treatment No Information Insurance Providers Payer Name Payer Address Payer Phone Subscriber Number Group Number Insured Name Patient Relationship to Insured Coverage Start Date Coverage End Date [place]IC[place] [address] [address] [place], [place] [id number] Kevin Myers Self - patient is the insured 8 MEDICARE [place] [address] [place], [place] [id number] Kevin Myers Self - patient is the insured [address] [facility] [address] [place], [place] [id number] PLAN J Kevin Myers Self - patient is the insured 1
--- OUTSIDE RECORDS SUMMARY | 2024-12-05 08:34 | XMS_ITS | Clinical Summary ---
Author Organization [facility] Tori Miramontes Address [address] [facility] [place] [address] Care Team Providers Care Flooring Professional Name Role Phone Luigi Gonzalez MD Primary Care Provider [phone] Allergies Active Allergy Reactions Criticality Noted Date [...] Encounters Date Type Department Care Team Description 11/25/2024 External Device Data STL ABSTRACTION Provider, Abstract 11/25/2024 External Device Data STL ABSTRACTION Provider, Abstract 11/11/2024 External Device Data ST[facility] ABSTRACTION Provider, Abstract 11/11/2024 External Device Data ST[facility] ABSTRACTION Provider, Abstract 11/04/2024 External Device Data ST[facility] ABSTRACTION Provider, Abstract 10/08/2024 External Device Data STL ABSTRACTION Provider, Abstract 10/07/2024 External Device Data STL ABSTRACTION Provider, Abstract [...] Sign Reading Time Taken Comments Blood Pressure 157/96 06/11/2024 9:07 AM CDT Pulse 87 06/11/2024 9:05 AM CDT Temperature 35.6 C (96.1 F) 06/11/2024 9:05 AM CDT Respiratory Rate 15 06/11/2024 9:05 AM CDT Oxygen Saturation 92% 06/11/2024 9:05 AM CDT Inhaled Oxygen Concentration - - Weight 64 kg (141 lb 3.2 oz) 06/11/2024 9:05 AM CDT Height 162.6 cm (5' 4) 12/02/2021 2:13 PM CDT Body Mass Index 24.24 12/02/2021 2:13 PM CDT Plan of Treatment Upcoming Encounters Date Type Department Care Team (Late st Contact Info) Description 12/12/2024 11:45 AM CDT Office Visit [facility] Oncology and Hematology - [place] [address] [place] [address] Attila Bass MD [address] [facility] [address] [place] [address] Health Maintenance Due Date Last Done Comments DTAP/TDAP/TD VACCINES (1 - Tdap) 1954 Traditional Medicare (ACO) A nnual Wellness Visit 1954 ZOSTER VACCINE (1 of 2) 09/29/1987 RSV VACCINE (60+ or ) (1 - 1-dose 75+ series) 2012 PNEUMOCOCCAL VACCINE 50+ YEA RS (2 of 2 - PPSV23, PCV20, or PCV21) 04/11/2015 02/14/2015 INFLUENZA VACCINE (#1) 2024 9, 01/14/2018, 01/29/2017, Additional history exists Insurance MEDICARE PART A AND B [facility] SUPP Care Teams Flooring Professional Relationship Specialty Start Date End Date Luigi Gonzalez MD PCP - General Internal Medicine 09/12/21
--- OUTSIDE RECORDS SUMMARY | 2024-12-05 08:34 | XMS_ITS ---
Author Organization [facility] Address [address] [place] [address] Care Team Providers Care Construction Project Administrator Name Role Phone Agapito Suh MD Unavailable Genesis BEST MD, Js Marcos Unavailable [phone] Cain Avalos MD Unavailable [phone] Luigi Gilbert MD Primary Care Provider + Active Problems Problem Noted Date Diagnosed Date Syncope and collapse 09/07/2024 Nausea 09/07/2024 Angina pectoris 02/24/2022 08/30/2022 Renal artery stenosis 02/24/2022 08/30/2022 Overview (08/30/2022): 10% of left right nml Chronic kidney disease, stage 2 (mild) 08/30/2022 Syncope, unspecified syncope type 02/16/2022 Diarrhea, [...] (11/12/2019): Added automatically from request for surgery [id number] Cardiovascular symptoms 11/10/2019 08/31/19 23 Overview (08/30/2022): 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, 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 [...] (08/26/2018): Added automatically from request for surgery [id number] Trigger middle finger of left hand 08/26/2018 Overview (08/26/2018): Added automatically from request for surgery [id number] Trigger index finger of right hand 08/26/2018 Overview (08/26/2018): Added automatically from request for surgery [id number] Trigger index finger of left hand 08/26/2018 Overview (08/26/2018): Added automatically from request for surgery [id number] S/P radiotherapy 05/23/2017 Prostate cancer 02/27/2017 Cancer Staging:Clinical stage from 02/27/2017: T3, N0, M0, PSA: Less than 10, [place] 8-10 - Signed by Ana Lilia Dinh [...] 180 25 / 4,500 Reference Points Delivered [id number] DPV 06/27/2017 - 07/24/2017 3,420 PELVIS DPV 05/24/2017 - 06/26/2017 4,500 Lifetime Dose Tracking * Chemical Lifetime Dose Automatic Entry Manual Entr y Fluoro Time 15.1 minutes 0 minutes 15.1 minutes Air kerma at the reference point (Ka,r) 1,622 mGy 0 mGy 1,622 mGy
--- OUTSIDE RECORDS SUMMARY | 2024-12-05 08:34 | XMS_ITS | Clinical Summary ---
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 Active mirtazapine (REMERON) 7.5 mg [...] mg total) by mouth nightly 0 Active rosuvastatin (CRESTOR) 40 mg tablet Take 1 tablet (40 mg total) by mouth nightly 3 Active donepeziL (ARICEPT) 10 mg tablet Take 1 tablet (10 mg total) by mouth daily 3 Active benzonatate (TESSALON) 100 mg capsuleIndicatio ns:Cough Take 1 capsule (100 mg total) by mouth every 8 (eight) hours 21 capsule 4 Active cyanocobalamin (Vitamin B-12) 1,000 mcg/mL injection Inject 1 mL (1,000 mcg total) into the muscle as instructed every 30 (thirty) days [address] (PROTONIX) 40 mg EC tabletIndication s:Stress Ulcer Prophylaxis Take 1 tablet (40 mg total) by mouth daily 30 tablet 2 5 12/10/19 25 Active Active Problems Problem Noted Date Diagnosed [...] (11/12/2019): Added automatically from request for surgery [id number] Cardiovascular symptoms 11/10/2019 08/31/19 23 Overview (08/30/2022): 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, 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 [...] (08/26/2018): Added automatically from request for surgery [id number] Trigger middle finger of left hand 08/26/2018 Overview (08/26/2018): Added automatically from request for surgery [id number] Trigger index finger of right hand 08/26/2018 Overview (08/26/2018): Added automatically from request for surgery [id number] Trigger index finger of left hand 08/26/2018 Overview (08/26/2018): Added automatically from request for surgery [id number] S/P radiotherapy 05/23/2017 Prostate cancer 02/27/2017 Cancer Staging:Clinical stage from 02/27/2017: T3, N0, M0, PSA: Less than 10, [place] 8-10 - Signed by Ana Lilia Dinh MD on 12/04/2019 Age-related physical debility Diaphoresis Encounters Date Type Department Care Team Description 10/18/19 Results Follow-Up [place] [facility] [employer] Director at [address] [place] [address] Luz Lara MD [facility] Mobile Cardiac Telemetry Event Monitor 09/19/19 25 [facility] Post Discharge Follow up phone call [facility] [address] [place] [id number] Samra José 09/19/19 25 [facility] Post Discharge Follow up phone call [address] [id number] Samra José 09/17/19 25 2:01 PM CDT - 09/17/19 25 11:59 PM CDT Hospital Encounter [facility] Cardiology [address] [place] [id number] Syncope and collapse Discharge Disposition: Discharge to home or self care 09/11/19 25 Documentation [facility] [address] [facility] [address] [place] [address] Huy Rahman MD 09/09/19 2:00 PM CDT Anesthesia Event [facility] [address] [place] [address] Oni Dunham MD 09/09/19 1:50 PM CDT - 09/09/19 2:05 PM CDT Surgery [facility] [address] [place] [address] Smith Castillo MD ESOPHAGOGASTRODUODENOSCOPY BALLOON DILATION <30MM 09/08/19 10:16 AM CDT - 09/10/19 5:17 PM CDT Hospital Encounter [facility] IMU [address] [place] [address] Chalo Newman MD Kheirkhahan, Nazanin, MD Nikolic, Jelena, MD Syncope and collapse (Primary Dx); Nausea Discharge Disposition: Discharge to home or self care 09/08/19 9:59 AM CDT - 09/08/19 11:59 PM CDT Hospital Encounter [facility] Emergency, Room R Discharge Disposition: Discharge to home or self care from Last 3 Months Immunizations Immunization Administration Dates Next Due Influenza, [...] pur e alcohol) rare glass of wine [facility] Utilities Answer Date Recorded In the past 12 months has th e electric, gas, oil, or water company threatened to shut off services in your home? No 09/08/2024 Social Connection and Isolation Panel Answer Date Recorded In a typical week, how many times do you talk on the phone with family, friends, or neighbors? More than three times a week 09/08/2024 How often do you get togethe r with friends or relatives? Twice a week 09/08/2024 How often do you attend chur ch or buddhist services? Never 09/08/2024 Do you belong to any clubs o r organizations such as mormonism groups, unions, fraternal or athletic groups, or school groups? No 09/08/2024 How often do you attend meet ings of the clubs or organizations you belong to? Never 09/08/2024 Are you , , di vorced, , never , or living with a partner? 09/08/2024 AUDIT-C Answer Date Recorded Q1: How often do you have a drink containing alc ohol? Monthly or less 02/16/2022 Q2: How many drinks containi ng alcohol do you have on a typical day when you are drinking? 1 or 2 02/16/2022 Q3: How often do you have si x or more drinks on one occasion? Less than monthly 02/16/2022 Overall Financial Resource Strain (CARDIA) Answe r Date Recorded How hard is it for you to pa y for the very basics like food, housing, medical care, and heating? Not hard at all 09/08/2024 PHQ-2 Answer Date Recorded PHQ-2 Score 0 02/27/2019 Hunger Vital Sign Answer Date Recorded Within the past 12 months, y ou worried that your food would run out before you got the money to buy more. Never true 09/09/19 25 Within the past 12 months, t he food you bought just didn't last and you didn't have money to get more. Never true 09/08/2024 PRAPARE - Transportation Answer Date Re corded In the past 12 months, has l ack of transportation kept you from medical appointments or from getting medications? No 08/24 In the past 12 months, has l ack of transportation kept you from meetings, work, or from getting things needed for daily living? No 09/08/2024 Housing Stability Vital Sign Answer Jesus e Recorded In the last 12 months, was t here a time when you were not able to pay the mortgage or rent on time? No 09/08/2024 In the past 12 months, how m any times have you moved where you were living? 0 09/08/2024 At any time in the past 12 m [facility], were you homeless or living in a [facility] (including now)? No 09/08/2024 Personal Safety Answer Date Recorded Have you ever been in or are you currently in a harmful physical or emotional relationship or is someone making you feel afraid or unsafe? Denies 09/07/2024 Sex and Gender Information Value Date Recorded Sex Assigned at Not on file Legal Sex Male 12:47 AM PARAOPTOMETRIC Gender Identity Not on file Sexual Orientation Not on file Obstetrics History Last Filed Vital Signs Vital Sign Reading Time Taken Comments Blood Pressure 109/60 09/09/2024 3:00 PM CDT Pulse 78 09/09/2024 3:00 PM CDT Temperature 36.2 C (97.1 F) 09/09/2024 3:00 PM CDT Respiratory Rate 16 09/09/2024 3:00 PM CDT Oxygen Saturation 91% 09/09/2024 3:00 PM CDT Inhaled Oxygen Concentration - - Weight 63 kg (138 lb 14.2 oz) 09/08/2024 2:15 PM CDT Height 165.1 cm (5' 5) 09/08/2024 2:15 PM CDT Body Mass Index 23.11 09/08/2024 2:15 PM CDT Plan of Treatment Health Maintenance Due Date Last Done Comments DTaP/Tdap/Td Vaccine (1 - Tdap) 1946 Hepatitis B Screening 09[birth year]29/1953 Zoster Vaccine (1 of 2) 09/29/1987 Well Visit 65+ 2002 Pneumococcal vaccine 65+ (2 of 2 - PPSV23, PCV20, or PCV21) 04/11/2015 02/14/2015 Depression Screening 02/26/2020 02/25/2019, 02/26/20 19 Influenza Vaccine (#1) 2024 9, 01/14/2018, 01/29/2017, Additional history exists Fall Risk Assessment 09/09/2025 09/09/2024, 06/02/19 21 Medical Devices Implanted Type Area Therapeutic Program Worker Device Identifier Shelf Expiration Date Model / Serial / Lot [employer] [id number] System Coronary Stent Xience Dania Everolimus L8 Mm Od2.5 Mm Rapid Exchange - [id number] Implanted:Qty: 1 on 11/25/2019 by Cain Avalos MD at [facility] [employer] 05/24/2020 [id number] / / [id number] [employer] [id number] System Coronary Stent Xience Dania Everolimus L23 Mm Od3 Mm Rapid Exchange - [id number] Implanted:Qty: 1 on 11/25/2019 by Cain Avalos MD at [facility] Vascular 05/13/2020 [id number] / / [id number] [employer] [id number] Synergy 2.25mm 12mm 144cm Radiopaque 1 Access Port Inflation - [id number] Implanted:Qty: 1 on 11/25/2019 by Cain Avalos MD at [facility] [employer] 03/31/2021 [id number] / / [id number] [employer] [id number] Device Closure Angio-Seal Vip Bondek-Plus Polyglyd L70 Cm Od6 Fr Odsec.035 In Vascular - [id number] Implanted:Qty: 1 on 11/25/2019 by Cain Avalos MD at [facility] [employer] 07/23/2020 [id number] / / [id number] Procedures Procedure Name Priority Date/Time Associated Diagnosis Comments MCT - MOBILE CARDIAC TELEMET RY EVENT MONITOR Routine 09/16/2024 2:01 PM CDT Syncope and collapse TRANSTHORACIC ECHO (TTE) COMPLETE W DOPPLER/CF WO CONTRAST Routine 09/09/2024 1:24 PM CDT EGFR Routine 09/09/2024 4:07 AM CDT DIFFERENTIAL AUTO Routine 09/09/2024 4:07 AM CDT BASIC METABOLIC PANEL Routine 09/09/2024 4:07 AM CDT CBC WITH AUTO DIFFERENTIAL Routine 09/09 4:07 AM CDT MRI BRAIN WO CONTRAST IP Routine 09/08/2024 6:09 PM CDT EEG Routine 09/08/2024 5:16 PM CDT ENDO ADD ON ESOPHAGOGASTRODUODENOSCOPY BIOPSY 09/08/2024 1:53 PM CDT Nausea ESOPHAGOGASTRODUODENOSCOPY BALLOON DILATION <30MM 09/08/2024 1:53 PM CDT Nausea EGD 09/08/2024 1:46 PM CDT SURGICAL PATHOLOGY STAT 09/08/2024 10:25 AM CDT Nausea US CAROTIDS DUPLEX BILATERAL IP Routine 9:27 AM CDT LIPID PANEL Add-On 09/08/2024 2:12 AM CDT EGFR Routine 09/08/2024 2:12 AM CDT DIFFERENTIAL AUTO Routine 09/08/2024 2:12 AM CDT BASIC METABOLIC PANEL Routine 09/08/2024 2:12 AM CDT CBC WITH AUTO DIFFERENTIAL Routine 09/08 2:12 AM CDT FOLATE Routine 09/08/2024 2:12 AM CDT VITAMIN B12 Routine 09/08/2024 2:12 AM CDT IRON PROFILE W/ IBC Routine 09/08/2024 2:12 AM CDT TROPONIN T HIGH-SENSITIVITY 6-HOUR Timed 09/07/2024 5:17 PM CDT TROPONIN T HIGH-SENSITIVITY 4-HR Timed 09/07/2024 3:04 PM CDT TROPONIN T HIGH-SENSITIVITY 2-HOUR Timed 09/07/2024 12:07 PM CDT URINALYSIS, MICROSCOPIC ONLY STAT 11:34 AM CDT URINALYSIS AND REFLEX TO MICROSCOPIC AND CULTURE STAT 09/07/2024 11:[address] HEAD WO CONTRAST ED 09/07/2024 11:05 AM CDT XR CHEST 1 VIEW ED 09/07/2024 10:41 AM CDT D-DIMER, QUANTITATIVE STAT 09/07/2024 10:35 AM CDT EGFR STAT 09/07/2024 10:35 AM CDT DIFFERENTIAL AUTO STAT 09/07/2024 10:35 AM CDT ETHANOL STAT 09/07/2024 10:35 AM CDT BLOOD GAS, VENOUS STAT 09/07/2024 10:35 AM CDT SEPSIS LACTATE WITH REFLEX STAT 09/07 10:35 AM CDT TROPONIN T HIGH-SENSITIVITY SERIES (BASELINE, 2HR, 4HR, 6HR) Routine 09/07/2024 10:35 AM CDT PROTIME-INR STAT 09/07/2024 10:35 AM CDT PRO B-TYPE NATRIURETIC PEPTIDE STAT 0 09/07/2024 10:35 AM CDT MAGNESIUM Routine 09/07/2024 10:35 AM CDT COMPREHENSIVE METABOLIC PANEL STAT 10:35 AM CDT CBC WITH AUTO DIFFERENTIAL STAT 09/07 10:35 AM CDT APTT STAT 09/07/2024 10:35 AM CDT ECG 12-LEAD Routine 09/07/2024 10:33 AM CDT from Last 3 Months Results * MCT Mobile Cardiac Telemetry Event Monitor (09/16/2024 2:01 PM CDT) Anatomical Region Laterality Modality Electrocardiogra phy 10/15/2024 11:5 9 PM CDT Narrative 10/17/2024 9:14 AM CDT [address] [address] EVENT MONITOR Patient Name: TAMIKO CONTRERAS : 1935 Study Date: 10/15/2024 11:59:00 PM Gender: M Tech: Ref Provider: LUZ LARA Height(Cm): BSA: Weight(Kg): Order Provider: LUZ LARA PROCEDURES: Event Report: Event Monitor Report. INDICATIONS: R55 Syncope and collapse. FINDINGS: CONCLUSIONS: 1. Predominant rhythm is normal sinus rhythm with a minimum heart rate of 47 beats per minute in sinus and a maximum heart rate of 191 beats per minute during a short run of SVT as will be described below. Average heart rate of 66 beats per minute. Heart rate was controlled 68% of the time, fast 1% of the time and slow 31% of the time. Total monitoring time of 28 days 11 hours 37 minutes. 2. Heart rate and rate variability is appropriate. 3. No prolonged pauses. 4. Rare PACs with 1,769 PACs corresponding to less than 1% of total beats. 5. Rare PVCs with 170 PVCs amounting to less than 1% of total beats. 6. There were 2 patient activated events with no symptoms and both noted to be in sinus rhythm ranging in heart rate from 67-80 beats per minute with no significant findings. 7. There were 3 auto detected events with 1 of them associated with a 10 beat run of SVT at 191 beats per minute. There was also a 5 beat run of nonsustained V-tach at 154 beats per minute. Electronically Signed By: Dr Luz Lara 10/17/2024 8:33:13 AM CDT Procedure Note Luz Lara MD - 10/17/[address] [place] [address] EVENT MONITOR Patient Name: TAMIKO CONTRERAS : 1935 Study Date: 10/15/2024 11:59:00 PM Gender: M Tech: Ref Provider: LUZ LARA Height(Cm): BSA: Weight(Kg): Order Provider: LUZ LARA PROCEDURES: Event Report: Event Monitor Report. INDICATIONS: R55 Syncope and collapse. FINDINGS: CONCLUSIONS: 1. Predominant rhythm is normal sinus rhythm with a minimum heart rate of47 beats per minute in sinus and a maximum heart rate of 191 beats per minute during ashort run of SVT as will be described below. Average heart rate of 66 beats per minute. Heart rate was controlled 68% of the time, fast 1% of the time and slow31% of the time. Total monitoring time of 28 days 11 hours 37 minutes. 2. Heart rate and rate variability is appropriate. 3. No prolonged pauses. 4. Rare PACs with 1,769 PACs corresponding to less than 1% of totalbeats. 5. Rare PVCs with 170 PVCs amounting to less than 1% of total beats. 6. There were 2 patient activated events with no symptoms and both notedto be in sinus rhythm ranging in heart rate from 67-80 beats per minute with nosignificant findings. 7. There were 3 auto detected events with 1 of them associated with a 10beat run of SVT at 191 beats per minute. There was also a 5 beat run of nonsustained V-tach at 154 beats perminute. Electronically Signed By: Dr Luz Lara 10/17/2024 8:33:13 AM CDT us Luz Lara MD [facility] C[facility] PROCEDURE S Final Result * TRANSTHORACIC ECHO (TTE) COMPLETE W DOPPLER/CF WO CONTRAST (09/09/2024 1:24 PM CDT) Estimated EF >70 % CONS SCIMAGE EF Mod BP 63 % CONS SCIMAGE Anatomical Region Laterality Modality Ultrasound 09/09/2024 1:17 PM CDT Narrative 09/09/2024 2:40 PM CDT [address] [address] Echocardiogram Report Patient Name: TAMIKO CONTRERAS : 1935 Study Date: 09/09/2024 1:17:51 PM Gender: M Tech: Location: [id number] Ref Provider: SMITH CASTILLO Height(Cm): 165 BSA: 1.69 Weight(Kg): 62.6 Quality: Adequate Order Provider: SMITH CASTILLO PROCEDURES: Echocardiographic Report: Transthoracic echocardiogram with complete 2D, M-Mode, and color Doppler examination. INDICATIONS: Syncope. MEASUREMENTS: 2D/MM Value Range Doppler Value Range EF Teich MM 63.0 % [ 52.0 - 72.0 ] RANGEL Vmax 1.66 cm2 EF Mod BP 63 % [ 52 - 72 ] AV Mean PG 6 mmHg Estimated EF >70 % AV Peak Jordan 1.70 m/s [ 1.00 - 1.70 ] LVIDd MM 4.60 cm [ 4.20 - 5.80 ] AV VTI 40.68 cm LVIDs MM 3.00 cm [ 2.50 - 4.00 ] LVOT Diam 1.96 cm LVPWd MM 0.70 cm [ 0.60 - 1.00 ] LVOT Peak Jordan 0.94 m/s [ 0.70 - 1.10 ] IVSd MM 0.80 cm [ 0.60 - 1.00 ] LVOT VTI 25.26 cm LA Dimension MM 2.29 cm [ 3.00 - 4.00 ] MV E Peak Jordan 0.92 m/s [ 0.60 - 1.30 ] AoR Diam MM 2.75 cm [ 3.10 - 3.70 ] MV A Peak Jordan 0.99 m/s [ 1.00 - 1.20 ] ACS MM 1.30 cm [ 1.50 - 2.60 ] MV Mean PG 2 mmHg MV PHT 39 msec [ 20 - 100 ] MVA 5.70 MV Decel Time 180 msec [ 104 - 258 ] PV Peak Jordan 0.89 m/s [ 0.40 - 0.80 ] AK Peak Jordan 1.09 m/s TR Peak Jordan 2.88 m/s [ 1.00 - 2.80 ] TR Peak PG 33 mmHg RVSP 41.00 mmHg [ 10.00 - 36.00 ] E` 0.04 m/s E/E` 22.98 [ <= 10.00 ] PA Pressure 41.00 mmHg [ 10.00 - 36.00 ] 2D/MM Value Range Doppler Value Range - FINDINGS: Atrial Septum: Normal atrial septum. Left Ventricle: Normal left ventricular size. Normal left ventricular wall thickness. Hyperdynamic left ventricular function. No focal wall motion abnormalities. Impaired diastolic relaxation Grade I. Ejection fraction is measured at 63 %. Ejection Fraction is estimated to be >70 %. Left Atrium: The left atrium is normal in size. Right Ventricle: Normal right ventricular size. Normal right ventricular systolic function. Right Atrium: The right atrium is normal in size. Aortic Valve: No evidence of hemodynamically significant aortic stenosis by Doppler. Aortic cusps appear mildly sclerotic. Aortic cusps appear mildly restricted. Mitral Valve: Mitral valve leaflets appear mildly thickened. Mild mitral valve regurgitation. Pulmonic Valve: Normal structure of the pulmonic valve. Trivial regurgitation in the pulmonic valve. Tricuspid Valve: Normal structure of the tricuspid valve. Mild pulmonary hypertension based on right ventricular systolic pressure. Estimated peak RVSP is 41 mmHg. Mild tricuspid regurgitation. Pericardium: Normal pericardium with no significant pericardial effusion. Aorta: There is mild atherosclerosis in the aortic root. IVC: The IVC is not well visualized. Pulmonary Artery: Pulmonary artery not well visualized. CONCLUSIONS: Normal left ventricular size. Normal left ventricular wall thickness. Hyperdynamic left ventricular function. No focal wall motion abnormalities. Impaired diastolic relaxation Grade I. Ejection fraction is measured at 63 %. Ejection Fraction is visually estimated to be >70 %. Normal right ventricular size. Normal right ventricular systolic function. Mitral valve leaflets appear mildly thickened. Mild mitral valve regurgitation. No evidence of hemodynamically significant aortic stenosis by Doppler. Aortic cusps appear mildly sclerotic. Aortic cusps appear mildly restricted. Normal structure of the tricuspid valve. Mild pulmonary hypertension based on right ventricular systolic pressure. Estimated peak RVSP is 41 mmHg. Mild tricuspid regurgitation. Normal pericardium with no significant pericardial effusion. Technically difficult study with suboptimal visualization. Subcostal views not available. Electronically Signed By: Mimi Gutierrez MD 09/09/2024 2:40:36 PM CDT Procedure Note Mimi Gutierrez MD - 09/09/[address] [address] Echocardiogram Report Patient Name: TAMIKO CONTRERAS : 1935 Study Date: 09/09/2024 1:17:51 PM Gender: M Tech: Location: [id number] Ref Provider: SMITH CASTILLO Height(Cm): 165 BSA: 1.69 Weight(Kg): 62.6 Quality: Adequate Order Provider: DAPHNEY NINADANGELO PROCEDURES: Echocardiographic Report: Transthoracic echocardiogram with complete 2D, M-Mode, and color Dopplerexamination. INDICATIONS: Syncope. MEASUREMENTS: 2D/MM Value Range Doppler ValueRange EF Teich MM 63.0 % [ 52.0 - 72.0 ] RANGEL Vmax 1.66cm2 EF Mod BP 63 % [ 52 - 72 ] AV Mean PG 6 mmHg Estimated EF >70 % AV Peak Jordan 1.70 m/s[ 1.00 - 1.70 ] LVIDd MM 4.60 cm [ 4.20 - 5.80 ] AV VTI 40.68cm LVIDs MM 3.00 cm [ 2.50 - 4.00 ] LVOT Diam 1.96cm LVPWd MM 0.70 cm [ 0.60 - 1.00 ] LVOT Peak Jordan 0.94 m/s[ 0.70 - 1.10 ] IVSd MM 0.80 cm [ 0.60 - 1.00 ] LVOT VTI 25.26cm LA Dimension MM 2.29 cm [ 3.00 - 4.00 ] MV E Peak Jordan 0.92 m/s[ 0.60 - 1.30 ] AoR Diam MM 2.75 cm [ 3.10 - 3.70 ] MV A Peak Jordan 0.99 m/s[ 1.00 - 1.20 ] ACS MM 1.30 cm [ 1.50 - 2.60 ] MV Mean PG 2 mmHg MV PHT 39 msec [ 20 - 100 ] MVA 5.70 MV Decel Time 180 msec [ 104 - 258 ] PV Peak Jordan 0.89 m/s [ 0.40 - 0.80 ] AK Peak Jordan 1.09 m/s TR Peak Jordan 2.88 m/s [ 1.00 - 2.80 ] TR Peak PG 33 mmHg RVSP 41.00 mmHg [ 10.00 - 36.00 ] E` 0.04 m/s E/E` 22.98 [ <= 10.00 ] PA Pressure 41.00 mmHg [ 10.00 - 36.00 ] 2D/MM Value Range Doppler ValueRange - FINDINGS: Atrial Septum: Normal atrial septum. Left Ventricle: Normal left ventricular size. Normal left ventricular wall thickness.Hyperdynamic left ventricular function. No focal wall motion abnormalities. Impaireddiastolic relaxation Grade I. Ejection fraction is measured at 63 %. Ejection Fraction isestimated to be >70 %. Left Atrium: The left atrium is normal in size. Right Ventricle: Normal right ventricular size. Normal right ventricular systolicfunction. Right Atrium: The right atrium is normal in size. Aortic Valve: No evidence of hemodynamically significant aortic stenosis by Doppler.Aortic cusps appear mildly sclerotic. Aortic cusps appear mildly restricted. Mitral Valve: Mitral valve leaflets appear mildly thickened. Mild mitral valveregurgitation. Pulmonic Valve: Normal structure of the pulmonic valve. Trivial regurgitation in thepulmonic valve. Tricuspid Valve: Normal structure of the tricuspid valve. Mild pulmonary hypertension basedon right ventricular systolic pressure. Estimated peak RVSP is 41 mmHg. Mildtricuspid regurgitation. Pericardium: Normal pericardium with no significant pericardial effusion. Aorta: There is mild atherosclerosis in the aortic root. IVC: The IVC is not well visualized. Pulmonary Artery: Pulmonary artery not well visualized. CONCLUSIONS: Normal left ventricular size. Normal left ventricular wall thickness.Hyperdynamic left ventricular function. No focal wall motion abnormalities. Impaireddiastolic relaxation Grade I. Ejection fraction is measured at 63 %. Ejection Fraction isvisually estimated to be >70 %. Normal right ventricular size. Normal right ventricular systolicfunction. Mitral valve leaflets appear mildly thickened. Mild mitral valveregurgitation. No evidence of hemodynamically significant aortic stenosis by Doppler.Aortic cusps appear mildly sclerotic. Aortic cusps appear mildly restricted. Normal structure of the tricuspid valve. Mild pulmonary hypertension basedon right ventricular systolic pressure. Estimated peak RVSP is 41 mmHg. Mildtricuspid regurgitation. Normal pericardium with no significant pericardial effusion. Technically difficult study with suboptimal visualization. Subcostal viewsnot available. Electronically Signed By: Mimi Gutierrez MD 09/09/2024 2:40:36 PM CDT Smith Castillo MD CV ECHO PROCEDURES Final R esult * (ABNORMAL) eGFR (09/09/2024 4:07 AM CDT) eGFR 52(L) >=60 mL/min/1. 73 m2 Comment: Interpretive Data Reference Interval Normal >/= 90 mL/min/1.73m2 Mildly decreased* 60 - 89 mL/min/1.73m2 Mildly to moderately decreased 45 - 59 mL/min/1.73m2 Moderately to severely decreased 30 - 44 mL/min/1.73m2 Severely decreased 15 - 29 mL/min/1.73m2 Kidney Failure < 15 mL/min/1.73m2 *Relative to young adult level Estimated glomerular filtration rate is determined by the 2020 CKD-EPI equation recommended by the National Kidney Foundation (A Unifying Approach to GFR Estimation: Recommendations of the NKF-ASK Task Force on Reassessing the Inclusion of Race in Diagnosing Kidney Disease, JASN 2020). The CKD-EPI equation should not be used for patients with unstable renal function and has not been validated in children and those over 70. Current interpretive data was last reviewed 2021. Blood 09/09/2024 4:07 AM CDT 09/09/2024 5:06 AM CDT Mona Rosado MD LAB BLOOD ORDERABLES Final Res ult [facility] [address] [facility] [place] [address] * Differential, auto (09/09/2024 4:07 AM CDT) Neutrophil abs 4.50 1.50 - 6.50 K/cumm Imm gran abs 0.03 0.00 - 0.10 K/cumm [facility] ([place]) Lymphocyte abs 1.13 0.80 - 3.30 K/cumm [facility] ([facility]) Monocyte abs 0.76 0.20 - 0.80 K/cumm [facility] ([facility]) Eosinophil abs 0.49 0.00 - 0.50 K/cumm [facility] ([facility]) Basophil abs 0.02 0.00 - 0.10 K/cumm [facility] ([facility]) Neutrophil pct 64.9 % [facility] ([facility]) Comment: Interpretive Data Percent cell count reference ranges are not reported, since discordance with absolute values may lead to misinterpretation of CBC data. Current Interpretive Data was last revised on 2017. Imm gran pct 0.4 % [facility] ([facility]) Comment: Interpretive Data Percent cell count reference ranges are not reported, since discordance with absolute values may lead to misinterpretation of CBC data. Current Interpretive Data was last revised on 2017. Lymphocyte pct 16.3 % [facility] ([facility]) Comment: Interpretive Data Percent cell count reference ranges are not reported, since discordance with absolute values may lead to misinterpretation of CBC data. Current Interpretive Data was last revised on 2017. Monocyte pct 11.0 % [facility] ([facility]) Comment: Interpretive Data Percent cell count reference ranges are not reported, since discordance with absolute values may lead to misinterpretation of CBC data. Current Interpretive Data was last revised on 2017. Eosinophil pct 7.1 % [facility] ([facility]) Comment: Interpretive Data Percent cell count reference ranges are not reported, since discordance with absolute values may lead to misinterpretation of CBC data. Current Interpretive Data was last revised on 2017. Basophil pct 0.3 % [facility] ([facility]) Comment: Interpretive Data Percent cell count reference ranges are not reported, since discordance with absolute values may lead to misinterpretation of CBC data. Current Interpretive Data was last revised on 2017. Blood 09/09/2024 4:07 AM CDT 09/09/2024 5:06 AM CDT us Mona Rosado MD LAB BLOOD ORDERABLES Final Res ult [facility] ([facility]) 1 [facility] [place] [address] * (ABNORMAL) CBC with auto differential (09/09/2024 4:07 AM CDT) [facility] WBC 6.93 3.80 - 9.90 K/cumm Hgb 10.4(L) 13.0 - 17.5 g/dL [facility] ([facility]) Hct 33.3(L) 38.9 - 50.3 % [facility] ([facility]) Plt 182 150 - 400 K/cumm [facility] ([facility]) MPV 9.1 9.1 - 12.3 fL [facility] ([facility]) RBC 3.55(L) 4.30 - 5.80 M/cumm [facility] ([facility]) MCV 93.8 81.3 - 96.4 fL [facility] ([facility]) MCH 29.3 27.1 - 33.3 pg [facility] ([facility]) MCHC 31.2(L) 32.3 - 35.7 g/dL [facility] ([facility]) RDW CV 13.6 11.1 - 14.9 % [facility] ([facility]) RDW SD 46.3 35.7 - 48.1 fL [facility] ([facility]) NRBC abs 0.00 0.00 - 0.01 K/cumm [facility] ([facility]) Blood 09/09/2024 4:07 AM CDT 09/09/2024 5:06 AM CDT us Smith Castillo MD LAB BLOOD ORDERABLES Final Result [facility] Department [place] [address] * (ABNORMAL) Basic metabolic panel (09/09/2024 4:07 AM CDT) [facility] Sodium 138 135 - 145 mmol/L Potassium, pl 4.3 3.3 - 4.9 mmol/L [facility] ([facility]) Chloride 104 97 - 110 mmol/L [facility] ([facility]) CO2 24 22 - 32 mmol/L [facility] ([facility]) Anion gap 10 2 - 15 mmol/L [facility] (ROM) BUN 27(H) 6 - 25 mg/dL [facility] ([place]) Creatinine 1.34(H) 0.80 - 1.30 mg/dL [facility] ([place]) Glucose 78 70 - 199 mg/dL [facility] (ROM) Comment: Interpretive Data Fasting glucose >/= 126 mg/dl is diagnostic for diabetes. Fasting is defined as no caloric intake for at least 8 hours. Fasting glucose between 100 mg/dl to 125 mg/dl is diagnostic of prediabetes. In a patient with classic symptoms of hyperglycemia or hyperglycemic crisis, a random glucose >/= 200 mg/dl is diagnostic for diabetes. In the absence of unequivocal hyperglycemia, results should be confirmed by repeat testing. The classification and Diagnosis of Diabetes Diabetes Care 2021; 46: S19-S40. Current interpretive data was last revised 2022. Calcium 9.0 8.5 - 10.3 mg/dL [facility] Blood 09/09/2024 4:07 AM CDT 09/09/2024 5:06 AM CDT us Smith Castillo MD LAB BLOOD ORDERABLES Final Result [facility]) 1 [facility] Department [place] [address] * MRI Brain WO Contrast (09/08/2024 6:09 PM CDT) Anatomical Region Laterality Modality Head and Neck N/A Magnetic Resonan ce 09/08/2024 8:29 PM CDT Narrative 09/08/2024 8:32 PM CDT EXAM DESCRIPTION: MRI BRAIN WO CONTRAST REASON FOR STUDY: Neuro deficit, acute, stroke suspected Syncopal episode/ r/o stroke TECHNIQUE: Multiplanar imaging includes non-contrasted T1, T2, FLAIR, and diffusion with ADC map sequences. Additional sequence(s) sensitive to blood products. Images stored on PACS. COMPARISON: CT 09/08/2019 FINDINGS: CEREBRUM: No hemorrhage, edema, or mass effect. WHITE MATTER: Patchy hypodensity of the cerebral white matter suggests chronic small-vessel ischemic changes. POSTERIOR FOSSA: Brainstem and cerebellum appear unremarkable. DIFFUSION IMAGING: No recent infarction. EXTRAAXIAL SPACES: No hemorrhage. No mass. BRAIN VOLUME: Diffuse atrophy of the brain is noted. PITUITARY: Unremarkable. VASCULATURE: No flow disturbance identified. ORBITS: No masses. Globes normal. PARANASAL SINUSES AND MASTOIDS: Well-aerated with no fluid levels. No mucosa thickening. OTHER: No other significant finding. IMPRESSION: Atrophy and chronic changes are noted. No acute process is seen. No evidence of acute infarction is seen. THIS IS AN ELECTRONICALLY VERIFIED FINAL REPORT 09/08/2024 8:32 PM - Electronically signed by Evan SAGE: CHU Report ID: [id number] Reading Location: [place] [address] Procedure Note Evan Sheth MD - 09/08/2024 EXAM DESCRIPTION: MRI BRAIN WO CONTRAST REASON FOR STUDY: Neuro deficit, acute, stroke suspected Syncopal episode/ r/o stroke TECHNIQUE: Multiplanar imaging includes non-contrasted T1, T2, FLAIR, and diffusion with ADC map sequences. Additional sequence(s) sensitive [email or web address]. Images stored on PACS. COMPARISON: CT 09/08/2019 FINDINGS: CEREBRUM: No hemorrhage, edema, or mass effect. WHITE MATTER: Patchy hypodensity of the cerebral white matter suggests chronic small-vessel ischemic changes. POSTERIOR FOSSA: Brainstem and cerebellum appear unremarkable. DIFFUSION IMAGING: No recent infarction. EXTRAAXIAL SPACES: No hemorrhage. No mass. BRAIN VOLUME: Diffuse atrophy of the brain is noted. PITUITARY: Unremarkable. VASCULATURE: No flow disturbance identified. ORBITS: No masses. Globes normal. PARANASAL SINUSES AND MASTOIDS: Well-aerated with no fluid levels. [place]uc[place] thickening. OTHER: No other significant finding. IMPRESSION: Atrophy and chronic changes are noted. No acute process is seen. Noevidence of acute infarction is seen. THIS IS AN ELECTRONICALLY VERIFIED FINAL REPORT 09/08/2024 8:32 PM - Electronically signed by Evan SAGE: CHU Report ID: [id number] Reading Location: [id number] us Smith Castillo MD IMG MRI PROCEDURES Final R esult * EEG (09/08/2024 5:16 PM CDT) Anatomical Region Laterality Modality Other Impressions 09/08/2024 5:16 PM CDT History: This is a 88 years old male patient being evaluated for seizure disorder. The condition of the patient during the tracing was reported to be awake and drowsy. The quality of study is good. The background activity consisted of 5-6 hertz theta activity of moderate amplitude. There was no epileptiform discharges seen in this tracing. EKG showed regular rate and rhythm. Impressions: This is an abnormal EEG because of slightly diffuse slowing. The finding is suggestive of mild encephalopathy which could be secondary to metabolic, hypoxic or toxic insult and sedative side effect of medications. There was no epileptiform discharge seen in this tracing. The clinical correlation is recommended. us Smith Castillo MD NEUROLOGY ORDERABLES Final Result * EGD (09/08/2024 1:46 PM CDT) Anatomical Region Laterality Modality Other Narrative Procedure Note Smith Castillo MD - 09/08/2024 1:[address] [facility] Patient Name: Tamiko Contreras Procedure Date: 09/08/2024 1:46 PM Date of : 1935 Admit Type: Inpatient Age: 88 Gender: Male Attending MD: Smith Castillo M.D. Room: [facility] ENDOSCOPY ROOM 1 Note Status: Finalized Patient Profile: This is an 88 year old male. Patient admitted with syncope and noted issues with vague history of dysphagia and excessive secretions and saliva inthe throat area. Procedure: Upper GI endoscopy Indications: Dysphagia Referring MD: Luigi Gilbert M.D. Providers: Smith Castillo M.D. 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 - Chronic gastritis. Biopsied. - Large hiatal hernia. Schatzki's ring at the GE junction. Dilated. Recommendation: - Use Protonix (pantoprazole) 40 mg PO daily indefinitely. - Mechanical soft diet indefinitely. Medicines: Monitored Anesthesia Care Complications: No immediate complications. Estimated Blood Loss: Estimated blood loss: none. Procedure: Pre-Anesthesia Assessment: - Prior to the procedure, a History and Physicalwas performed, and patient medications and allergieswere reviewed. The patient's tolerance of previous anesthesia was also reviewed. The risks andbenefits of the procedure and the sedation options and risks were discussed with the patient. All questions were answered, and informed consent was obtained. Prior Anticoagulants: The patient has taken noanticoagulant or antiplatelet agents. ASA Grade Assessment: Per anesthesia note and evaluation. After reviewing the risks and benefits, the patient was deemed in satisfactory condition to undergo the procedure. The benefits, risks, and alternatives to theprocedure and sedation were discussed and informed consentwas obtained. The scope was passed under direct vision. The Endoscope GIF-H190 [id number] was introduced through the mouth, and advanced to the second partof duodenum. The upper GI endoscopy was accomplished without difficulty. The patient tolerated the procedure well. Findings: The examined duodenum was normal. Scattered moderate inflammation characterized by erosions anderythema was found in the gastric pre-pyloric area. Biopsies were taken with a cold forceps for histology. The gastric body was normal. Retroflexion showed large hiatal hernia A large approximately 10 cm complex hiatal hernia was present belowthe GE junctionand the mucosa within the hiatal hernia normal. Mild esophagitis noted in the distal esophagus. There was small Schatzki's ring at the GE junction at the 30 cm from the junctionthat was easily passed with a gentle push of the scope. The esophagus body was tortuous likely because of dysmotility in the affect of thehiatal hernia. A TTS dilator was passed through the scope. Dilation of theGE junction and distal esophagus with a 15-16.5-18 mm balloon dilatorwas performed to 18 mm. Electronically signed by Smith Castillo M.D. Smith Castillo M.D. 09/08/2024 2:40:04 PM Number of Addenda: 0 Note Initiated On: 09/08/2024 1:46 PM Procedure Code(s): --- Professional --- 65968, Esophagogastroduodenoscopy, flexible, transoral; with transendoscopic balloon dilation of esophagus (less than 30 mmdiameter) 52633, 59, Esophagogastroduodenoscopy, flexible, transoral; withbiopsy, single or multiple Diagnosis Code(s): --- Professional --- K29.50, Unspecified chronic gastritis without bleeding K44.9, Diaphragmatic hernia without obstruction or gangrene K22.2, Esophageal obstruction R13.10, Dysphagia, unspecified CPT copyright 2020 [employer]. All rights reserved. The codes documented in this report are preliminary and upon bench carpenter reviewmay be revised to meet current compliance requirements. Recognized by the [employer] [employer] for promoting quality in endoscopy Smith Castillo MD ENDOSCOPY PROCEDURES Final Result * Surgical pathology (09/08/2024 10:25 AM CDT) Tissue (Gastric/Stomach biopsy) 09/08/2024 2:19 PM CDT Tissue specimen (specimen) (Esophageal biopsy) 09/08/2024 2:19 PM CDT Narrative PATHOLOGY [facility] ([place]) - 09/12/2024 11:44 AM CDT EPIC results best viewed via link to PDF [facility] Department of Pathology [address] [place] [id number] Note to Patients: This report may contain a detailed description of human tissue sent by a health care provider to the laboratory for pathologic evaluation. The content of this report is essential for diagnosis and may provide important critical findings. This information may be unfamiliar to patients to review without a medical professional present. It is advised that the patient review this report in the presence of a health care provider who can answer questions and explain the details. Final Report Patient Name: TAMIKO CONTRERAS Address: [address] [place] [address] Gender: M : 1935 (Age: 88) Service: Medical Location: [facility] Hospital #: [id number] Patient Type: [facility] Taken: 09/08/2024 Received: 09/09/2024 Accessioned: 09/09/2024 Reported: 09/12/2024 Physician(s):Dr. Smith Castillo M.D. Diagnosis: A. Stomach, gastric biopsy- Benign antral type gastric mucosa demonstrating mild chronic active gastritis IHC stain negative for Helicobacter organisms B. Esophagus, endoscopic biopsy- Detached fragments of benign squamous mucosa demonstrating no significant pathologic abnormality Marta Garcia M.D. Report Electronically Reviewed and Signed Out By Marta Garcia M.D. 09/12/2024 11:44:01 Specimen(s) Received: A: Gastric biopsies B: Esophagus Biopsies Microscopic Description: Microscopic examination corroborates the diagnosis. Appropriate IHC control is also reviewed. Clinical History: Nausea. EGD. Gross Description: The specimen is submitted in two formalin containers labeled TAMIKO Gibbons. The first container is labeled gastric biopsies. It is 3 fragments of reynoso tissue measuring 1 mm. All in A. B. The second container is labeled esophagus. It is 2 reynoso tissue fragments between 1 and 2 mm. All in B. T.A. Oneil Melara P.A./Fred Perez M.D. REPORT IMAGES AND SCANNED DOCUMENTS, IF INCLUDED, ONLY VIEWABLE IN PDF VERSION OF REPORT The performance characteristics of some immunohistochemical stains, fluorescence in-situ hybridization tests and immunophenotyping by flow cytometry cited in this report (if any) were determined by the Surgical Pathology Department at [facility] as part of an ongoing senior quality control technician program and in compliance with federally mandated regulations drawn from the Clinical Laboratory Improvement Act of 1988 (CLIA '88). Some of these tests rely on the use of analyte specific reagents and are subject to specific labeling requirements by the US Food and Drug Administration. Such diagnostic tests may only be performed in a facility that is certified by the Department of Health and Human Services as a high complexity laboratory under CLIA '88. The FDA has determined that such clearance or approval is not necessary. This test is used for clinical purposes. It should not be regarded as investigational or for research. Nevertheless, federal rules concerning the medical use of analyte specific reagents require that the following disclaimer be attached to the report: This test was developed and its performance characteristics determined by the Surgical Pathology Department [facility]. It has not been cleared or approved by the U. S. Food and Drug Administration. Note for decalcified specimens: This assay has not been validated on decalcified tissues. Results should be interpreted with caution given the possibility of false negativity on decalcified specimens Smith Castillo MD LAB PATHOLOGY ORDERABLES F inal Result PATHOLOGY [facility] 1 [place] [address] * US Carotids Duplex Bilateral (09/08/2024 9:27 AM CDT) Anatomical Region Laterality Modality Vascular Bilateral Ultrasound 09/08/2024 10:4 9 AM CDT Narrative 09/08/2024 10:55 AM CDT EXAM DESCRIPTION: US CAROTIDS DUPLEX BILATERAL REASON FOR STUDY: Syncope. TECHNIQUE: Gracia scale, color Doppler and spectral Doppler imaging were performed. Velocity criteria are extrapolated from diameter as defined by the Society of Radiologists in Ultrasound Consensus Conference. All velocity measurements are in cm/sec. COMPARISON: 06/06/2019. FINDINGS: Right: Mild intimal thickening and plaque are seen. Distal CCA Peak Systolic Velocity: 55 Distal CCA End Diastolic Velocity: 19 Peak ICA Systolic Velocity: 98 ICA End Diastolic Velocity: 34 Peak ICA/CCA Systolic Ratio: 1.8 Right Vertebral Artery: Antegrade direction of flow. Left: Mild intimal thickening and plaque are seen. Distal CCA Peak Systolic Velocity: 62 Distal CCA End Diastolic Velocity: 18 Peak ICA Systolic Velocity: 81 ICA End Diastolic Velocity: 28 Peak ICA/CCA Systolic Ratio: 1.3 Left Vertebral Artery: Antegrade direction of flow. IMPRESSION: 1. Velocities correspond to a less than 50 percent diameter stenosis of the right ICA. 2. Velocities correspond to a less than 50 percent diameter stenosis of the left ICA. 3. Antegrade direction of flow of the bilateral vertebral arteries. REFERENCE: Consensus Panel Gracia-Scale and Doppler US Criteria for Diagnosis of ICA Stenosis. No stenosis: ICA PSV <125*, 0 percent plaque, ICA/CCA PSV Ratio <2.0, ICA EDV <40*. <50 percent stenosis: ICA PSV <125*, <50 percent plaque, ICA/CCA PSV Ratio <2.0, ICA EDV <40*. 50-69 percent stenosis: ICA PSV 125-230*, >=50 percent plaque, ICA/CCA PSV Ratio 2.0-4.0, ICA EDV 40-100*. >=70 percent but less than near occlusion >230, >=50 percent plaque, ICA/CAA PSV Ratio >4.0, ICA EDV >100*. *cm/sec Plaque estimate (diameter reduction) with gracia-scale and color Doppler US. RSNA 2002 THIS IS AN ELECTRONICALLY VERIFIED FINAL REPORT 09/08/2024 10:55 AM - Electronically signed by Kofi Bass M.D. CH: ANTHOYN Report ID: [id number] Reading Location: [id number] Procedure Note Kofi Bass Jr., MD - 09/08/2024 EXAM DESCRIPTION: US CAROTIDS DUPLEX BILATERAL REASON FOR STUDY: Syncope. TECHNIQUE: Gracia scale, color Doppler and spectral Doppler imaging were performed. Velocity criteria are extrapolated from diameter as defined bythe Society of Radiologists in Ultrasound Consensus Conference. All velocity measurements are in cm/sec. COMPARISON: 06/06/2019. FINDINGS: Right: Mild intimal thickening and plaque are seen. Distal CCA Peak Systolic Velocity: 55 Distal CCA End Diastolic Velocity: 19 Peak ICA Systolic Velocity: 98 ICA End Diastolic Velocity: 34 Peak ICA/CCA Systolic Ratio: 1.8 Right Vertebral Artery: Antegrade direction of flow. Left: Mild intimal thickening and plaque are seen. Distal CCA Peak Systolic Velocity: 62 Distal CCA End Diastolic Velocity: 18 Peak ICA Systolic Velocity: 81 ICA End Diastolic Velocity: 28 Peak ICA/CCA Systolic Ratio: 1.3 Left Vertebral Artery: Antegrade direction of flow. IMPRESSION: 1. Velocities correspond to a less than 50 percent diameter stenosisof the right ICA. 2. Velocities correspond to a less than 50 percent diameter stenosisof the left ICA. 3. Antegrade direction of flow of the bilateral vertebral arteries. REFERENCE: Consensus Panel Gracia-Scale and Doppler US Criteria forDiagnosis of ICA Stenosis. No stenosis: ICA PSV <125*, 0 percent plaque, ICA/CCA PSV Ratio <2.0, ICAEDV <40*. <50 percent stenosis: ICA PSV <125*, <50 percent plaque, ICA/CCA PSV Ratio <2.0, ICA EDV <40*. 50-69 percent stenosis: ICA PSV 125-230*, >=50 percent plaque, ICA/CCA PSV Ratio 2.0-4.0, ICA EDV 40-100*. >=70 percent but less than near occlusion >230, >=50 percent plaque,ICA/CAA PSV Ratio >4.0, ICA EDV >100*. *cm/sec Plaque estimate (diameter reduction) with gracia-scale and color DopplerUS. RSNA 2002 THIS IS AN ELECTRONICALLY VERIFIED FINAL REPORT 09/08/2024 10:55 AM - Electronically signed by Kofi Bass M.D. CH: ANTHONY Report ID: [id number] Reading Location: [place] [address] us Mona Rosado MD IMG US PROCEDURES Final Result * (ABNORMAL) eGFR (09/08/2024 2:12 AM CDT) eGFR 53(L) >=60 mL/min/1. 73 m2 Comment: Interpretive Data Reference Interval Normal >/= 90 mL/min/1.73m2 Mildly decreased* 60 - 89 mL/min/1.73m2 Mildly to moderately decreased 45 - 59 mL/min/1.73m2 Moderately to severely decreased 30 - 44 mL/min/1.73m2 Severely decreased 15 - 29 mL/min/1.73m2 Kidney Failure < 15 mL/min/1.73m2 *Relative to young adult level Estimated glomerular filtration rate is determined by the 2020 CKD-EPI equation recommended by the National Kidney Foundation (A Unifying Approach to GFR Estimation: Recommendations of the NKF-ASK Task Force on Reassessing the Inclusion of Race in Diagnosing Kidney Disease, JASN 2020). The CKD-EPI equation should not be used for patients with unstable renal function and has not been validated in children and those over 70. Current interpretive data was last reviewed 2021. Blood 09/08/2024 2:12 AM CDT 09/08/2024 4:28 AM CDT us Mona Rosado MD LAB BLOOD ORDERABLES Final Res ult [facility] 1 [facility] Department of Laboratories [place], [place] [id number] * (ABNORMAL) Differential, auto (09/08/2024 2:12 AM CDT) Neutrophil abs 3.44 1.50 - 6.50 K/cumm Imm gran abs 0.02 0.00 - 0.10 K/cumm [facility] ([facility]) Lymphocyte abs 1.35 0.80 - 3.30 K/cumm [facility] ([facility]) Monocyte abs 0.65 0.20 - 0.80 K/cumm [facility] ([place]) Eosinophil abs 0.52(H) 0.00 - 0.50 K/cumm [facility] ([facility]) Basophil abs 0.03 0.00 - 0.10 K/cumm [facility] ([facility]) Neutrophil pct 57.2 % [facility] ([facility]) Comment: Interpretive Data Percent cell count reference ranges are not reported, since discordance with absolute values may lead to misinterpretation of CBC data. Current Interpretive Data was last revised on 2017. Imm gran pct 0.3 % [facility] ([facility]) Comment: Interpretive Data Percent cell count reference ranges are not reported, since discordance with absolute values may lead to misinterpretation of CBC data. Current Interpretive Data was last revised on 2017. Lymphocyte pct 22.5 % [facility] ([facility]) Comment: Interpretive Data Percent cell count reference ranges are not reported, since discordance with absolute values may lead to misinterpretation of CBC data. Current Interpretive Data was last revised on 2017. Monocyte pct 10.8 % [facility] ([facility]) Comment: Interpretive Data Percent cell count reference ranges are not reported, since discordance with absolute values may lead to misinterpretation of CBC data. Current Interpretive Data was last revised on 2017. Eosinophil pct 8.7 % [facility] ([facility]) Comment: Interpretive Data Percent cell count reference ranges are not reported, since discordance with absolute values may lead to misinterpretation of CBC data. Current Interpretive Data was last revised on 2017. Basophil pct 0.5 % [facility] ([facility]) Comment: Interpretive Data Percent cell count reference ranges are not reported, since discordance with absolute values may lead to misinterpretation of CBC data. Current Interpretive Data was last revised on 2017. Blood 09/08/2024 2:12 AM CDT 09/08/2024 4:28 AM CDT us Mona Rosado MD LAB BLOOD ORDERABLES Final Res ult [facility] ([place]) 1 [facility] Department [place] [address] * (ABNORMAL) Iron profile w/ IBC (09/08/2024 2:12 AM CDT) Iron 48(L) 50 - 150 mcg/dL TIBC 340 250 - 400 mcg/dL [facility] ([facility]) Transferrin saturation 14(L) 20 - 50 % [facility] ([facility]) Blood 09/08/2024 2:12 AM CDT 09/08/2024 4:28 AM CDT us Mona Rosado MD LAB BLOOD ORDERABLES Final Res ult [facility] ([facility]) 1 [facility] Department [place] [address] * (ABNORMAL) CBC with auto differential (09/08/2024 2:12 AM CDT) WBC 6.01 3.80 - 9.90 K/cumm Hgb 10.8(L) 13.0 - 17.5 g/dL [facility] ([facility]) Hct 34.7(L) 38.9 - 50.3 % [facility] ([facility]) Plt 199 150 - 400 K/cumm [facility] ([facility]) MPV 9.4 9.1 - 12.3 fL [facility] ([facility]) RBC 3.72(L) 4.30 - 5.80 M/cumm [facility] ([facility]) MCV 93.3 81.3 - 96.4 fL [facility] ([facility]) MCH 29.0 27.1 - 33.3 pg [facility] ([facility]) MCHC 31.1(L) 32.3 - 35.7 g/dL [facility] ([facility]) RDW CV 13.8 11.1 - 14.9 % [facility] ([facility]) RDW SD 46.6 35.7 - 48.1 fL [facility] ([facility]) NRBC abs 0.00 0.00 - 0.01 K/cumm [facility] ([facility]) Blood 09/08/2024 2:12 AM CDT 09/08/2024 4:28 AM CDT us Smith Castillo MD LAB BLOOD ORDERABLES Final Result Performing Organization Address City/[facility]/ZIP Co de Phone Number [facility] 1 [facility] [place] [address] * Folate (09/08/2024 2:12 AM CDT) Folic acid 9.9 >=5.0 ng/mL Comment:Slightly Hemolyzed S pecimen. Results may be affected. Blood 09/08/2024 2:12 AM CDT 09/08/2024 4:28 AM CDT Mona Rosado MD LAB BLOOD ORDERABLES Final Res ult Performing Organization Address [facility] [[email or web address]] Co de Phone Number [facility] [place] ([place]) 1 [facility] [place] [address] * Vitamin B12 (09/08/2024 2:12 AM CDT) Vitamin B12 439 230 - 1,250 pg/mL Blood 09/08/2024 2:12 AM CDT 09/08/2024 4:28 AM CDT Mona Rosado MD LAB BLOOD ORDERABLES Final Res ult Performing Organization Address [facility] [[email or web address]] Co de Phone Number [facility] ([place]) 1 [facility] [place] [address] * Lipid panel (09/08/2024 2:12 AM CDT) Cholesterol 132 30 - 199 mg/dL Comment: Interpretive Data Ages < or = 19 years Acceptable: <170 mg/dL Borderline high: 170-199 mg/dL High: >or= 200 mg/dL Ages > or = 20 years Desirable: <200 mg/dL Borderline high: 200-239 mg/dL High: >or= 240 mg/dL Literature References: 1. Expert Panel on Integrated Guidelines for Cardiovascular Health and Risk Reduction in Children and Adolescents. Pediatrics 2011;128:S213 2. NCEP Expert Panel. Circulation 2004;110:227 Current Interpretive Data was last revised on 2017. Triglycerides 112 <=149 mg/dL [facility] ([place]) Comment: Interpretive Data Ages < or = 9 years Acceptable: <75 mg/dL Borderline high: 75-99 mg/dL High: >or= 100 mg/dL Ages 10 to 20 years Acceptable: <90 mg/dL Borderline high: 90-129 mg/dL High: >or= 130 mg/dL Ages > or = 20 years Desirable: <150 mg/dL Borderline high: 150-199 mg/dL High: 200-499 mg/dL Very high: >or= 499 mg/dL Literature References: 1. Expert Panel on Integrated Guidelines for Cardiovascular Health and Risk Reduction in Children and Adolescents. Pediatrics 2011;128:S213 2. NCEP Expert Panel. Circulation 2004;110:227 Current Interpretive Data was last revised on 2017. HDL 50 >=40 mg/dL [facility] ([place]) Comment: Interpretive Data Ages < or = 19 years Acceptable: >45 mg/dL Borderline low: 40-45 mg/dL Low: <40 mg/dL Ages > or = 20 years Desirable: >or= 60 mg/dL Low: <40 mg/dL Literature References: 1. Expert Panel on Integrated Guidelines for Cardiovascular Health and Risk Reduction in Children and Adolescents. Pediatrics 2011;128:S213 2. NCEP Expert Panel. Circulation 2004;110:227 Current Interpretive Data was last revised on 2017. LDL, calculated 62 <=129 mg/dL [facility] ([place]) Comment: Interpretive Data Ages < or = 19 years Acceptable: <110 mg/dL Borderline high: 110-129 mg/dL High: >or= 130 mg/dL Ages > or = 20 years Optimal: <100 mg/dL Near optimal: 100-129 mg/dL Borderline high: 130-159 mg/dL High: >160 mg/dL Calculated using the Kun LDL-C estimating equation. This equation was implemented on 2023. Prior to this date LDL-C was estimated using the Friedewald equation. Literature References: 1. Expert Panel on Integrated Guidelines for Cardiovascular Health and Risk Reduction in Children and Adolescents. Pediatrics 2011;128:S213 2. NCEP Expert Panel. Circulation 2004;110:227 3. Kun Gurrola et al. ROSALINE Cardiol. 2019July 24;5(5):540-548. doi: 10.1001/jamacardio.2020.0013 Current Interpretive Data was last revised on 2023. Non-HDL Cholesterol 82 mg/dL [facility] ([place]) Comment: Interpretive Data Ages < or = 19 years Acceptable: <120 mg/dL Borderline high: 120-144 mg/dL High: >145 mg/dL Ages > or = 20 years When triglycerides are >200 mg/dL, Non-HDL cholesterol is a secondary target of therapy with treatment goals that are 30 mg/dL greater than the LDL cholesterol target. Literature References: 1. Expert Panel on Integrated Guidelines for Cardiovascular Health and Risk Reduction in Children and Adolescents. Pediatrics 2011;128:S213 2. NCEP Expert Panel. Circulation 2004;110:227 Current Interpretive Data was last revised on 2017. Chol/HDL ratio 3 [facility] ([place]) Blood 09/08/2024 2:12 AM CDT 09/08/2024 11:23 AM CDT Demetrio Adame POSTAL CLERK LAB BLOOD ORDERABLES Final Result [facility] ([place]) 1 [facility] [place] [address] * (ABNORMAL) Basic metabolic panel (09/08/2024 2:12 AM CDT) Sodium 138 135 - 145 mmol/L Potassium, pl 4.2 3.3 - 4.9 mmol/L [facility] ([place]) Chloride 102 97 - 110 mmol/L [facility] ([place]) CO2 26 22 - 32 mmol/L [facility] ([place]) Anion gap 10 2 - 15 mmol/L [facility] ([place]) BUN 23 6 - 25 mg/dL [facility] ([place]) Creatinine 1.31(H) 0.80 - 1.30 mg/dL [facility] ([place]) Glucose 70 70 - 199 mg/dL [facility] ([place]) Comment: Interpretive Data Fasting glucose >/= 126 mg/dl is diagnostic for diabetes. Fasting is defined as no caloric intake for at least 8 hours. Fasting glucose between 100 mg/dl to 125 mg/dl is diagnostic of prediabetes. In a patient with classic symptoms of hyperglycemia or hyperglycemic crisis, a random glucose >/= 200 mg/dl is diagnostic for diabetes. In the absence of unequivocal hyperglycemia, results should be confirmed by repeat testing. The classification and Diagnosis of Diabetes Diabetes Care 2021; 46: S19-S40. Current interpretive data was last revised 2022. Calcium 9.1 8.5 - 10.3 mg/dL [facility] ([place]) Blood 09/08/2024 2:12 AM CDT 09/08/2024 4:28 AM CDT us Smith Castillo MD LAB BLOOD ORDERABLES Final Result Performing Organization Address [facility]/ZIP Co de Phone Number [facility] ([place]) [address] [place] [address] [place] [address] * Troponin T high-sensitivity 6-hour (09/07/2024 5:17 PM CDT) Trop T hs 13 <=22 ng/L Comment: Interpretive Data For further hscTnT resources including the diagnostic algorithm and an aid in interpretation, copy and paste this link: https://nrl.testcatalog.org/show/hsTrop Current Interpretive Data last revised 2020. Trop T hs delta -2 ng/L [facility] ([place]) Trop T hs interp Insignificant [facility] Blood 09/07/2024 5:17 PM CDT 09/07/2024 5:43 PM CDT us Chalo Newman MD LAB BLOOD ORDERABLES Final R esult [facility] ([place]) 1 [facility] [place] [address] * Troponin T high-sensitivity 4-hour (09/07/2024 3:04 PM CDT) Trop T hs 13 <=22 ng/L Comment: Interpretive Data For further hscTnT resources including the diagnostic algorithm and an aid in interpretation, copy and paste this link: https://nrl.testcatpayasUgym.org/show/hsTrop Current Interpretive Data last revised 2020. Trop T hs delta -2 ng/L [facility] ([place]) Trop T hs interp Insignificant [facility] ([place]) Blood 09/07/2024 3:04 PM CDT 09/07/2024 3:17 PM CDT Chalo Newman MD LAB BLOOD ORDERABLES Final R esult Performing Organization Address [facility] [[email or web address]] Co de Phone Number [facility] ([place]) [address] [place] [address] [place] [address] * Troponin T high-sensitivity 2-hour (09/07/2024 12:07 PM CDT) Trop T hs 14 <=22 ng/L Comment: Interpretive Data For further hscTnT resources including the diagnostic algorithm and an aid in interpretation, copy and paste this link: https://nrl.testReality Sports Online.org/show/hsTrop Current Interpretive Data last revised 2020. Trop T hs delta -1 ng/L [facility] ([place]) Trop T hs interp Insignificant [facility] ([place]) Blood 09/07/2024 12:0 7 PM CDT 09/07/2024 12:09 PM CDT Chalo Newman MD LAB BLOOD ORDERABLES Final R esult Performing Organization Address [facility] [[email or web address]] Co de Phone Number [facility] ([place]) 1 [facility] [place] [place] [address] * (ABNORMAL) Urinalysis reflex to microscopic and culture Urine (09/07/2024 11:34 AM CDT) Color, ur Yellow Yellow Clarity, ur Clear Clear [facility] ([place]) Specific gravity, ur 1.019 1.003 - 1.030 [facility] ([place]) pH, urine 6.5 [facility] ([place]) Comment: Interpretive Data U rine pH is affected by diet, medications, systemic acid-base disturbances, and renal tubular function. pH may affect urinary stone formation. For example, urine pH below 6.0 may help reduce the tendency for calcium phosphate stones and pH greater than 6.0 may reduce the tendency for uric acid stone formation. Source: [facility] [employer] Current Interpretive Data was last revised on 2017 Protein, ur ql Trace Negative [facility] ([place]) Glucose, ur ql Negative Negative [facility] ([place]) Ketones, ur Negative Negative [facility] ([place]) Bilirubin, ur Negative Negative [facility] ([place]) Blood, ur 1+(A) Negative [facility] ([place]) Urobilinogen, ur <2.0 <2.0 mg/dL [facility] ([place]) Nitrite, ur Negative Negative [facility] ([place]) Leukocyte esterase, ur Negative Negative [facility] ([place]) UA reflex comment Reflex to microscopic UA will be performed. [facility] ([place]) Urine 09/07/2024 11:3 4 AM CDT 09/07/2024 11:36 AM CDT us Chalo Newman MD LAB MICROBIOLOGY - GENERAL O RDERABLES Final Result [facility] ([place]) 1 [facility] [place] [address] * (ABNORMAL) Urinalysis, microscopic only (09/07/2024 11:34 AM CDT) WBC, ur 0-5 0 - 5 /HPF RBC, ur 21-50(A) 0 - 2 /HPF [facility] ([place]) Epithelial cells, squamous, ur 1-5 0 - 5 /HPF [facility] ([place]) Mucous, ur Present(A) [facility] ([place]) Hyaline casts, ur 1-5 0 - 10 /LPF [facility] ([place]) Culture Reflex Comment Reflex conditions for urine culture (WBC >10) not met. [facility] ([place]) Urine 09/07/2024 11:3 4 AM CDT 09/07/2024 11:36 AM CDT us Chalo Newman MD LAB URINE ORDERABLES Final R esult [facility] ([place]) 1 [facility] [place] [address] * CT Head WO Contrast (09/07/2024 11:05 AM CDT) Anatomical Region Laterality Modality Head and Neck N/A Computed Tomogra phy 09/07/2024 11:0 8 AM CDT Narrative 09/07/2024 11:11 AM CDT EXAM DESCRIPTION: CT HEAD WO CONTRAST REASON FOR STUDY: Mental status change, unknown cause complaints of having excessive saliva when he eats. He states it feels weird and becomes short of breath then. Denies fever, chills and pain. Pt is alert and oriented times four. Bystanders near thought he was choking. Pt denies. TECHNIQUE: Axial images acquired through the brain without intravenous contrast. Images stored on PACS. Automated exposure control was used as a dose optimization technique for this examination. COMPARISON: 04/11/2021 FINDINGS: BRAIN: No hemorrhage, edema or mass effect. No recent infarct. Patchy low attenuation is seen in the periventricular white matter of the cerebral hemispheres. The ventricular system and subarachnoid spaces are enlarged. EXTRA-AXIAL SPACES: No fluid collections. No masses. CALVARIUM: No fracture. SINUSES/MASTOIDS: Sclerotic change in the mastoids is similar to the previous CT. There is a small air-fluid level in the left maxillary sinus. ORBITS: No significant abnormality. OTHER: No other significant abnormality. IMPRESSION: 1. Atrophy and small vessel disease, no acute intracranial findings. 2. Small air-fluid level in the left maxillary sinus. This could be due to acute sinusitis. THIS IS AN ELECTRONICALLY VERIFIED FINAL REPORT 09/07/2024 11:11 AM - Electronically signed by Silverio Laurent M.D. VIJAYA: VIJAYA Report ID: [id number] Reading Location: [id number] Procedure Note Jaskaran Laurent MD - 09/07/2024 EXAM DESCRIPTION: CT HEAD WO CONTRAST REASON FOR STUDY: Mental status change, unknown cause complaints of having excessive saliva when he eats. He states it feelsweird and becomes short of breath then. Denies fever, chills and pain. Pt isalert and oriented times four. Bystanders near thought he was choking. Ptdenies. TECHNIQUE: Axial images acquired through the brain without intravenous contrast. Images stored on PACS. Automated exposure control was used asa dose optimization technique for this examination. COMPARISON: 04/11/2021 FINDINGS: BRAIN: No hemorrhage, edema or mass effect. No recent infarct. Patchylow attenuation is seen in the periventricular white matter of the cerebral hemispheres. The ventricular system and subarachnoid spaces are enlarged. EXTRA-AXIAL SPACES: No fluid collections. No masses. CALVARIUM: No fracture. SINUSES/MASTOIDS: Sclerotic change in the mastoids is similar to the previous CT. There is a small air-fluid level in the left maxillarysinus. ORBITS: No significant abnormality. OTHER: No other significant abnormality. IMPRESSION: 1. Atrophy and small vessel disease, no acute intracranial findings. 2. Small air-fluid level in the left maxillary sinus. This could be dueto acute sinusitis. THIS IS AN ELECTRONICALLY VERIFIED FINAL REPORT 09/07/2024 11:11 AM - Electronically signed by Silverio Laurent M.D. VIJAYA: VIJAYA Report ID: [id number] Reading Location: [id number] us Chalo Newman MD IMG CT PROCEDURES Final Resu lt * XR Chest 1 View (09/07/2024 10:41 AM CDT) Anatomical Region Laterality Modality Body, Chest N/A Computed Radiogr aphy 09/07/2024 10:4 4 AM CDT Narrative 09/07/2024 10:44 AM CDT EXAM DESCRIPTION: XR CHEST 1 VIEW REASON FOR STUDY: chest pain Daughter is here and is saying that he has frequent passing out spells. Stated she was called by the restaurant that her father passed out and went unresponsive. TECHNIQUE: Single-view COMPARISON: 11/13/2023 FINDINGS: Central vascularity are mildly prominent and ill-defined which could indicate mild vascular congestion or peribronchial inflammation. No dense consolidation, effusion or pneumothorax. Moderate-sized hiatal hernia unchanged. IMPRESSION: Mild central vascular prominence could indicate mild vascular congestion or peribronchial inflammation. THIS IS AN ELECTRONICALLY VERIFIED FINAL REPORT 09/07/2024 10:44 AM - Electronically signed by Luz Looney M.D. RB: RB Report ID: [id number] Reading Location: [id number] Procedure Note Luz Looney MD - 09/07/2024 EXAM DESCRIPTION: XR CHEST 1 VIEW REASON FOR STUDY: chest pain Daughter is here and is saying that he has frequent passing out spells.Stated she was called by the restaurant that her father passed out and went unresponsive. TECHNIQUE: Single-view COMPARISON: 11/13/2023 FINDINGS: Central vascularity are mildly prominent and ill-defined which couldindicate mild vascular congestion or peribronchial inflammation. No dense consolidation, effusion or pneumothorax. Moderate-sized hiatal hernia unchanged. IMPRESSION: Mild central vascular prominence could indicate mild vascular congestionor peribronchial inflammation. THIS IS AN ELECTRONICALLY VERIFIED FINAL REPORT 09/07/2024 10:44 AM - Electronically signed by Luz Looney M.D. RB: RB Report ID: [id number] Reading Location: [id number] Chalo Newman MD IMG XR PROCEDURES Final Resu lt * Troponin T high-sensitivity series (baseline, 2hr, 4hr, 6hr) (09/07/2024 10:35 AM CDT) Trop T hs 15 <=22 ng/L Comment: Interpretive Data For further hscTnT resources including the diagnostic algorithm and an aid in interpretation, copy and paste this link: https://nrl.testcatalog.org/show/hsTrop Current Interpretive Data last revised 2020. Blood 09/07/2024 10:3 5 AM CDT 09/07/2024 10:36 AM CDT Chalo Newman MD LAB BLOOD ORDERABLES Final R esult [facility] ([place]) 1 [facility] [place] [address] * Sepsis Lactate w/ Reflex (09/07/2024 10:35 AM CDT) Sepsis Lactate 1.4 0.7 - 2.0 mmol/L Blood 09/07/2024 10:3 5 AM CDT 09/07/2024 10:40 AM CDT Chalo Newman MD LAB BLOOD ORDERABLES Final R esult Performing Organization Address City/[facility]/ZIP Co de Phone Number [facility] ([place]) 1 [facility] [place] [address] * (ABNORMAL) eGFR (09/07/2024 10:35 AM CDT) eGFR 56(L) >=60 mL/min/1. 73 m2 Comment: Interpretive Data Reference Interval Normal >/= 90 mL/min/1.73m2 Mildly decreased* 60 - 89 mL/min/1.73m2 Mildly to moderately decreased 45 - 59 mL/min/1.73m2 Moderately to severely decreased 30 - 44 mL/min/1.73m2 Severely decreased 15 - 29 mL/min/1.73m2 Kidney Failure < 15 mL/min/1.73m2 *Relative to young adult level Estimated glomerular filtration rate is determined by the 2020 CKD-EPI equation recommended by the National Kidney Foundation (A Unifying Approach to GFR Estimation: Recommendations of the NKF-ASK Task Force on Reassessing the Inclusion of Race in Diagnosing Kidney Disease, JASN 2020). The CKD-EPI equation should not be used for patients with unstable renal function and has not been validated in children and those over 70. Current interpretive data was last reviewed 2021. Blood 09/07/2024 10:3 5 AM CDT 09/07/2024 10:36 AM CDT us Chalo Newman MD LAB BLOOD ORDERABLES Final R esult [facility] ([place]) 1 [facility] Department [place] [address] * (ABNORMAL) Differential, auto (09/07/2024 10:35 AM CDT) Neutrophil abs 4.32 1.50 - 6.50 K/cumm Imm gran abs 0.04 0.00 - 0.10 K/cumm [facility] ([place]) Lymphocyte abs 1.43 0.80 - 3.30 K/cumm [facility] ([place]) Monocyte abs 0.62 0.20 - 0.80 K/cumm [facility] ([place]) Eosinophil abs 0.63(H) 0.00 - 0.50 K/cumm [facility] ([place]) Basophil abs 0.02 0.00 - 0.10 K/cumm [facility] ([place]) Neutrophil pct 61.1 % [facility] ([place]) Comment: Interpretive Data Percent cell count reference ranges are not reported, since discordance with absolute values may lead to misinterpretation of CBC data. Current Interpretive Data was last revised on 2017. Imm gran pct 0.6 % [facility] ([place]) Comment: Interpretive Data Percent cell count reference ranges are not reported, since discordance with absolute values may lead to misinterpretation of CBC data. Current Interpretive Data was last revised on 2017. Lymphocyte pct 20.3 % [facility] ([place]) Comment: Interpretive Data Percent cell count reference ranges are not reported, since discordance with absolute values may lead to misinterpretation of CBC data. Current Interpretive Data was last revised on 2017. Monocyte pct 8.8 % [facility] ([place]) Comment: Interpretive Data Percent cell count reference ranges are not reported, since discordance with absolute values may lead to misinterpretation of CBC data. Current Interpretive Data was last revised on 2017. Eosinophil pct 8.9 % [facility] ([place]) Comment: Interpretive Data Percent cell count reference ranges are not reported, since discordance with absolute values may lead to misinterpretation of CBC data. Current Interpretive Data was last revised on 2017. Basophil pct 0.3 % [facility] ([place]) Comment: Interpretive Data Percent cell count reference ranges are not reported, since discordance with absolute values may lead to misinterpretation of CBC data. Current Interpretive Data was last revised on 2017. Blood 09/07/2024 10:3 5 AM CDT 09/07/2024 10:37 AM CDT us Chalo Newman MD LAB BLOOD ORDERABLES Final R esult [facility] ([place]) 1 [facility] [place] [address] * Pro B-type natriuretic peptide (09/07/2024 10:35 AM CDT) NT-proBNP 132 <=450 pg/mL Comment: Interpretive Comments: A. Dyspnea in Acute Care Setting All Ages: < 300 pg/ml, acute heart failure unlikely. < 50 yrs: 300 - 450 pg/ml, further investigation warranted. > 450 pg/ml, acute heart failure likely. 50 - 74 yrs: 300 - 900 pg/ml, further investigation warranted. > 900 pg/ml, acute heart failure likely . > or = 75 yrs: 450 - 1800 pg/ml, further investigation warranted. > 1800 pg/ml, acute heart failure likely. B. Non-acute Setting < 75 yrs < 125 pg/ml, rules out heart failure. > or = 125 pg/ml, further investigation warranted. > or = 75 yrs < 450 pg/ml, rules out heart failure. > or = 450 pg/ml, further investigation warranted. - Knowledge of each individual patient's NT-proBNP range may be more useful than using similar cut-points for every patient. Please note that marked elevations in NT-proBNP levels may be observed in state other than Left Ventricular Congestive Failure, including: acute coronary syndromes, right heart strain/failure (including pulmonary embolism and cor pulmonale), critical illness, renal failure, as well as advanced age. - References: 1. Huong SUN et.al. Eur Heart J. 2006:27:330-337. 2. Ramsey RW, Josr TAMAYO. J. AM Nilay Cardiol: Cardiovasc Imag. 2009;2: 216- 225. Interpretive Data Last Revised Date: 2017. Blood 09/07/2024 10:3 5 AM CDT 09/07/2024 10:36 AM CDT Chalo Newman MD LAB BLOOD ORDERABLES Final R esult [facility] ([place]) 1 [facility] Department of Laboratories [place], [place] [id number] * (ABNORMAL) CBC with auto differential (09/07/2024 10:35 AM CDT) WBC 7.06 3.80 - 9.90 K/cumm Hgb 11.7(L) 13.0 - 17.5 g/dL [facility] ([place]) Hct 37.6(L) 38.9 - 50.3 % [facility] ([place]) Plt 207 150 - 400 K/cumm [facility] ([place]) MPV 8.8(L) 9.1 - 12.3 fL [facility] ([place]) RBC 4.01(L) 4.30 - 5.80 M/cumm [facility] ([place]) MCV 93.8 81.3 - 96.4 fL [facility] ([place]) MCH 29.2 27.1 - 33.3 pg [facility] ([place]) MCHC 31.1(L) 32.3 - 35.7 g/dL [facility] ([place]) RDW CV 13.9 11.1 - 14.9 % [facility] ([place]) RDW SD 47.5 35.7 - 48.1 fL [facility] ([place]) NRBC abs 0.00 0.00 - 0.01 K/cumm [facility]) Blood 09/07/2024 10:3 5 AM CDT 09/07/2024 10:37 AM CDT Chalo Newman MD LAB BLOOD ORDERABLES Final R esult Performing Organization Address City/[facility] [[email or web address]] Co de Phone Number [facility] ([place]) 1 [facility] [place] [address] * aPTT (09/07/2024 10:35 AM CDT) aPTT 31 28 - 38 sec [facility] ([place] Comment: Interpretive Data Heparin therapeutic range: 66.0 - 100.0 seconds. Range based on correlation with therapeutic heparin activity range of 0.3 - 0.7 Units/mL. Current interpretive data was last revised on 2022. Blood 09/07/2024 10:3 5 AM CDT 09/07/2024 10:36 AM CDT Chalo Newman MD LAB BLOOD ORDERABLES Final R esult Performing Organization Address City/[facility] [[email or web address]] Co de Phone Number [facility] ([place]) 1 [facility] [place] [address] * Protime-INR (09/07/2024 10:35 AM CDT) PT 10.0 9.7 - 13.0 sec [facility] ([place]) INR 0.93 0.90 - 1.20 [facility] Comment: Interpretive data Oral anticoagulant therapeutic ranges: Venous thromboembolism prophylaxis or treatment: 2.0-3.0 CARDIOLOGY Standard range: 2.0-3.0 High-intensity range: 2.5-3.5 Refer to indication-specific guidelines for appropriate target ranges for prosthetic heart valve replacement. Current interpretive data was last revised on 2019. Blood 09/07/2024 10:3 5 AM CDT 09/07/2024 10:36 AM CDT Chalo Newman MD LAB BLOOD ORDERABLES Final R esult Performing Organization Address City/[facility]/ZIP Co de Phone Number [facility] [place] 1 [facility] [place] [address] * D-dimer, quantitative (09/07/2024 10:35 AM CDT) D-Dimer 480 <=499 ng/mL FEU [facility] Comment: Interpretive data FDA approved the D-dimer, in conjunction with a low or moderate pretest probability score, to exclude venous thromboembolic events (VTE) (PE and DVT) in outpatients when the D-dimer result is < 500 ng/ml FEU. Evidence supports using an age-adjusted D-dimer cut-off for outpatients older than 50 (age x 10) to improve specificity without sacrificing sensitivity. Example: age 68, VTE cut-off 680 ng/ml FEU. References; Schouten HT et al. Brit Med J. 2013;346:f2492. Jennifer WILLIAM et al. Annals Int Med. 2015;163:701-11. Current interpretive data was last revised on 2019. Blood 09/07/2024 10:3 5 AM CDT 09/07/2024 11:55 AM CDT Chalo Newman MD LAB BLOOD ORDERABLES Final R esult Performing Organization Address [facility] [[email or web address]] Co de Phone Number [facility] [place] 1 [facility] [place] [place] [address] * Magnesium (09/07/2024 10:35 AM CDT) Magnesium 1.8 1.4 - 2.5 mg/dL Blood 09/07/2024 10:3 5 AM CDT 09/07/2024 10:36 AM CDT Chalo Newman MD LAB BLOOD ORDERABLES Final R esult [facility] ([place]) 1 [facility] [place] [address] * (ABNORMAL) Blood gas, venous (09/07/2024 10:35 AM CDT) pH, Venous 7.34 7.32 - 7.43 PCO2, Venous 56(H) 40 - 50 mmHg [facility] ([place]) PO2, Venous 22 mmHg [facility] ([place]) Comment: Interpretive Data No reference range established. Current interpretive data was last revised 2017. HCO3 Venous, Calculated 29 20 - 30 mmol/L [facility] ([place]) BE, venous 3 mmol/L [facility] ([place]) Comment: Interpretive Data No Reference Range Established Current Interpretive Data was last revised on 2017. Blood 09/07/2024 10:3 5 AM CDT 09/07/2024 10:40 AM CDT Chalo Newman MD LAB BLOOD ORDERABLES Final R esult Performing Organization Address [facility] [[email or web address]] Co de Phone Number [facility] ([place]) [address] [place] [address] * Ethanol (09/07/2024 10:35 AM CDT) Pathologist [facility] Ethanol <10 <=10 mg/dL Comment: Interpretive Data Legal limit of intoxication > or = 80 mg/dL Levels > or = 400 mg/dL are potentially TOXIC. Current interpretive data was last revised on 2018. Blood 09/07/2024 10:3 5 AM CDT 09/07/2024 10:36 AM CDT Chalo Newman MD LAB BLOOD ORDERABLES Final R esult [facility] ([place]) [address] [place] [address] * Comprehensive metabolic panel (09/07/2024 10:35 AM CDT) Sodium 138 135 - 145 mmol/L Potassium, pl 4.3 3.3 - 4.9 mmol/L [facility] ([place]) Chloride 99 97 - 110 mmol/L [facility] ([place]) CO2 27 22 - 32 mmol/L [facility] ([place]) Anion gap 13 2 - 15 mmol/L [facility] ([place]) BUN 21 6 - 25 mg/dL [facility] ([facility]) Creatinine 1.26 0.80 - 1.30 mg/dL [facility] ([facility]) Glucose 111 70 - 199 mg/dL [facility] ([facility]) Comment: Interpretive Data Fasting glucose >/= 126 mg/dl is diagnostic for diabetes. Fasting is defined as no caloric intake for at least 8 hours. Fasting glucose between 100 mg/dl to 125 mg/dl is diagnostic of prediabetes. In a patient with classic symptoms of hyperglycemia or hyperglycemic crisis, a random glucose >/= 200 mg/dl is diagnostic for diabetes. In the absence of unequivocal hyperglycemia, results should be confirmed by repeat testing. The classification and Diagnosis of Diabetes Diabetes Care 2021; 46: S19-S40. Current interpretive data was last revised 2022. Calcium 9.7 8.5 - 10.3 mg/dL [facility] ([facility]) Bilirubin, total 0.4 0.1 - 1.2 mg/dL [facility] ([facility]) Protein, pl 6.9 6.5 - 8.5 g/dL [facility] ([facility]) Albumin 4.0 3.5 - 5.0 g/dL [facility] ([facility]) Alk phos 100 40 - 130 Units/L [facility] ([facility]) ALT 11 7 - 55 Units/L [facility] ([facility]) AST 18 10 - 50 Units/L [facility] ([facility]) Blood 09/07/2024 10:3 5 AM CDT 09/07/2024 10:36 AM CDT us Chalo Newman MD LAB BLOOD ORDERABLES Final R esult [facility] ([facility]) [address] [facility] Department [place] [address] * ECG 12 lead (09/07/2024 10:33 AM CDT) 09/07/2024 10:3 3 AM CDT Narrative [facility] - 09/08/2024 6:49 AM CDT Vent Rate: 68 bpm RR Interval: 873 msec [place] Interval: 162 msec QRS Duration: 92 msec QT Interval: 403 msec QTC Interval: 421 msec P-R-T [place]: 23 - 16 - 14 degrees IMPRESSION: SINUS RHYTHM NORMAL ECG NO CHANGE FROM PREVIOUS TRACING NOTED Electronically Signed By: Shant Avina MD us Chalo Newman MD ECG ORDERABLES Final Result [facility] from Last 3 Months Insurance MEDICARE COMMERCIAL GENERIC [facility] INSURANCE MEDICARE REPLACED BY [facility] [employer] MEDICARE SUPPLEMENT MEDICARE COMMERCIAL GENERIC MEDICARE [facility] MEDICARE SUPPLEMENT Advance Directives For more information, please contact: [phone] * Full Code (Latest Code Status on File) Date Activated Date Inactivated Comments 09/08/2024 1:55 PM 09/09/2024 9:18 PM * LIMITED - No CPR Date Activated Date Inactivated Comments 09/07/2024 1:01 PM 09/08/2024 1:55 PM Question Answer Comments Provide aggressive medical m anagement before a full cardiopulmonary arrest occurs. Use antibiotics, IV Fluids, and medical treatment unless specifically selected below: No intubation * Full Code Date Activated Date Inactivated Comments 06/17/2021 3:48 [...] Comments 04/11/2021 10:12 PM 04/12/2021 10:12 AM Healthcare Agents on File Name Relationship Healthcare Agent [facility] p Communication Ayanna Coreas Daughter Health Care Agent Care Teams Laser Beam Cutter Relationship Specialty [place] [id number] [facility] [address] [place] [address] PCP - General Internal Medicine 04/25/21 Agapito Suh MD Consulting Physician Radiation Oncology 04/26/18 [place] [id number] [facility] [address] [place] [address] Consulting Physician Neurology 03/13/19 [place] [id number] [facility] [address] [place] [address] Consulting Physician Cardiology 11/26/19
--- OUTSIDE RECORDS SUMMARY | 2024-12-05 08:34 | XMS_ITS | Encounter Summary ---
Author Organization [facility] Address [address] [place] [address] Phone Care Team Providers Care Brush Cutter Name Role Phone Luigi Gilbert MD Primary Care Provider + Agapito Suh MD Unavailable [phone] Genesis BEST MD, Js Marcos Unavailable [phone] Cain Avalos MD Unavailable [phone] Luigi Gilbert MD Primary Care Provider + Encounter Details Date Type Department Care Team (Late st Contact Info) Description 07/24/2017 Orders Only [facility] ProviderHerlinda MD [address] [place] [id number] Social History Tobacco Use Types Packs/Day Years Used Date Smoking Tobacco: Never Smokeless Tobacco: Never Sex and Gender Information Value Date Recorded Sex Assigned at Not on file 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 Based on a S&S onset date of 04/02/21 plus the need for supplemental oxygen this patient is first eligible for COVID: Recovered evaluation on 04/23/21. 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 COVID: Suspected 11/21/2023 11/21/2023 11/21/2023 6:22 PM CDT documented as of this encounter Care Teams Brush Cutter Relationship Specialty [place] [id number] [address] [facility] [place] [address] PCP - General 12/15/16 04/24/21 [place] [id number] [address] [facility] [place] [address] PCP - General Internal Medicine 04/25/21 [place] [address] [address] [facility] [place] [address] Consulting Physician Radiation Oncology 04/26/18 [place] [id number] [address] [address] Consulting Physician Neurology 03/13/19 [place] [id number] [address] Consulting Physician Cardiology 11/26/19 documented as of this encounter
[2024-12-05 08:43] LABS: Hematocrit 37.3 % (42.0-52.0); Hemoglobin 11.8 g/dL (14.0-18.0); Immature Granulocyte Percent A 0.7 % (0-0.5); Lymphocytes Absolute Auto 0.96 K/mm3 (0.9-3.2); Mean Corpuscular HGB Conc 31.6 g/dl (32-36); Mean Corpuscular Hemoglobin 29.1 pg (26-34); Mean Corpuscular Volume 91.9 fl (80-100); Nucleated Red Blood Cells Absolute Auto 0.000 K/mm3 (0.0-0.012); Nucleated Red Blood Cells Perc 0.0 % (0.0-0.2); Platelet Count Result 196 k/mm3 (150-375); Red Blood Count 4.06 M/mm3 (4.6-6.20); White Blood Count 7.2 K/mm3 (4.5-10.0)
[2024-12-05 14:15] LABS: Iron 42 ug/dL (49-181)
[2024-12-05 14:17] LABS: Anion Gap 9 mmol/L (4-12); Blood Urea Nitrogen 17 mg/dL (9-20); Calcium 9.8 mg/dL (8.4-10.2); Carbon Dioxide 27 mmol/L (22-30); Chloride 103 mmol/L (98-107); Estimated Glomerular Filt Rate > 60; Glucose 105 mg/dL (65-110); Potassium 3.9 mmol/L (3.4-5.0); Sodium 139 mmol/L (137-145)
[2024-12-05 14:25] LABS: Percent Iron Saturation 10 % (20-50)
[2024-12-05 14:56] LABS: Prostate Specific Antigen < 0.1 ng/mL (< OR = 4.0)
[2024-12-05 14:59] LABS: Ferritin 23.20 ng/mL (11.1-264)
[2024-12-05 15:31] LABS: Vitamin B12 539.0 pg/mL (239-931)
== END 2024-12-05 08:25 | disposition home or self-care (01) ==
LOC: ANHLAB 08:27
PROVIDERS: PCP Internal Medicine Geriatric Medicine; Visit Provider Internal Medicine Hematology & Oncology
DX: D64.9 Anemia, unspecified (principal); C61 Malignant neoplasm of prostate
CPT/HCPCS: 36415; 80048; 82607; 82728; 82746; 83540; 83550; 84153; 85025